=== PATIENT | male | born 1945 | race Caucasian/White ===

== ENCOUNTER 2017-05-13 15:54 | Inpatient (IN) | payer MEDICARE, OTHER ==
[2017-05-13] VITALS (15 sets, daily range): BP systolic 92–129; BP diastolic 63–96
[~2017-05-13] VITALS: Ht 185.4 cm; Wt 141.7 kg
[2017-05-13] MEDS ORDERED: FURO40TA4 PO (16:32)
[2017-05-13] MEDS ORDERED: ALBU18HF2 IH (16:32)
[2017-05-13] MEDS ORDERED: TAMS0.4C2 PO (16:32)
[2017-05-13] MEDS ORDERED: CIPR500T4 PO (16:32)
[2017-05-13] MEDS ORDERED: FOLI1TAB24 PO (17:27)
[2017-05-13] MEDS ORDERED: METH2.5T PO (17:27)
[2017-05-13] MEDS ORDERED: POTA20TA15 PO (17:27)
[2017-05-13] MEDS ORDERED: NS IV 1000 ML 1,000 ML IV PRN (17:40)
[2017-05-13] MEDS: NS IV 1000 ML 1,000 ML IV SCH ×4 (17:45→20:56)
[2017-05-13] MEDS ORDERED: PHARMACY TO DOSE SQ SCH (17:45)
[2017-05-13] MEDS ORDERED: NS IV 1000 ML 4,000 ML IV PRN (17:45)
[2017-05-13] MEDS ORDERED: PIPERACILLIN SODIUM/TAZOBACTAM 4.5 GM in NS (IVPB) 100 ML IV SCH (17:45)
[2017-05-13] MEDS ORDERED: PHARMACY TO DOSE IV SCH (17:45)
[2017-05-13] MEDS ORDERED: PIPERACILLIN/TAZOBACTAM 4.5 GM/NS 100 ML IV NR ×2 (18:00)
[2017-05-13] MEDS ORDERED: RT-ALBUTEROL/IPRATROPIUM 3 ML (DUONEB) VIAL ONE (18:14)
[2017-05-13 18:19] LABS: ABG BASE EXCESS -6.9 MMOL/L (-2.5-2.5); ABG HCO3 18 MMOL/L (23-27); ABG OXYGEN SATURATION 95 % (94-100); ABG PCO2 38 MMHG (35-45); ABG PO2 85 MMHG (79-93)
--- NOTE | 2017-05-13 18:19 | History & Physical-Hospitalist ---
HPI History of Present Illness: HPI/Chief Complaint CC: Sepsis with hypotension likely urinary source HPI: This is a 71-year-old white male whose provider is Dr. Falk in [place] that was sent to [facility] ER due to hypotension. He was assessed to have sepsis likely of urinary source due to recent prostatitis managed on Cipro and Flomax but then he became hypotensive given 2 L of IV fluids at [place] [facility] but were unable to place Gaitan catheter due to the significant edema of the prostate. He was given Zosyn empirically for broad-spectrum antibiotics of likely urinary source but patient has to continue to become hypotensive and likely will require intubation due to wheezing after 2 L of fluid have been given. I have conferred with Dr. Quarles and Dr. Ruvalcaba and they will assist me in consultation but likely will require intubation if fails BiPAP. At this current time patient is tracking slowly but answering questions appropriately although slowed response. He reports that he takes methotrexate 10 tablets once a week for his arthritis. He is unable to tell me if he has any heart or lung problems. 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 Source: patient, RN/MD Exam Limitations: clinical condition Date Seen 05/13/17 Time Seen by Provider: 17:45 Attending Physician Catie Evans Marianne C MD Referring Physician Date of Admission May 13, 2017 at 16:21 Home Medications & Allergies Home Medications Reviewed patient Home Medication Reconciliation Form Allergies Allergies Coded Allergies No Known Drug Allergies (Unverified05/13/17) Past Thggxbw-Gtokxp-Zwspjc Hx Patient Social History Employed/Student: retired Alcohol Use: Regular Use Recreational Drug Use: No Smoking Status: Former Smoker Former Smoker, Quit: Oct 29, 1997 Physical Abuse Screen: No Sexual Abuse: No Recent Foreign Travel: No Contact w/other who traveled: No Recent Hopitalizations: No Recent Infectious Disease Expo: No Seasonal Allergies Seasonal Allergies: No Surgeries Yes Respiratory No Cardiovascular No Neurological No Genitourinary Yes (prostatitis) Benign Prostatic Hyperpl Gastrointestinal No Musculoskeletal Yes Arthritis Endocrine History of Endocrine Disorders: No HEENT History of HEENT Disorders: No Cancer No Psychosocial History of Psychiatric Problem: No Integumentary History of Skin or Integumenta: No Blood Transfusions History of Blood Disorders: No Review of Systems Constitutional: see HPI, chills, diaphoresis, dizziness, fever, malaise, weakness EENTM: no symptoms reported Respiratory: dyspnea on exertion, short of breath, wheezing Cardiovascular: no symptoms reported Gastrointestinal: nausea Genitourinary: decreased output, dysuria, frequency, hematuria, hesitancy, nocturia, pain Musculoskeletal: back pain Skin: no symptoms reported Psychiatric/Neurological: Depressed All Other Systems Reviewed Negative Unless Noted: Yes Physical Exam Physical Exam Vital Signs Vital Sign - Last 12Hours 05/13/17 16:20 O2 Delivery Nasal Cannula O2 Flow Rate 4.00 Capillary Refill : General Appearance: WD/WN, Chronically ill, Moderate Distress (due to wheezing) , Obese, Other (very actuely ill, subtle confusion, slowed tracking) Eyes: Bilateral Eye Normal Inspection, Bilateral Eye PERRL HEENT: PERRL/EOMI, Normal ENT Inspection, Pharynx Normal Neck: Full Range of Motion, Normal Inspection, Non Tender, Supple, Carotid Bruit Respiratory: Chest Non Tender, Crackles, Decreased Breath Sounds, Rales, Respiratory Distress (mild but impending), Wheezing Cardiovascular: No Edema, No Gallop, No JVD, No Murmur, Normal Peripheral Pulses, Tachycardia Gastrointestinal: Normal Bowel Sounds, No Organomegaly, No Pulsatile Mass, Non Tender, Soft Back: Normal Inspection, No CVA Tenderness, No Vertebral Tenderness Extremity: Normal Capillary Refill, Normal Inspection, Normal Range of Motion, Non Tender, No Calf Tenderness, No Pedal Edema Neurologic/Psychiatric: Alert, Oriented x3, No Motor/Sensory Deficits, Normal Mood/Affect Skin: Normal Color, Warm/Dry, Rash (on legs chronic) Lymphatic: No Adenopathy Assessment/Plan Admission Diagnosis Assessment: Sepsis with hypotension status post 2 L of fluid given will need another 2 L due to continued hypotension and likely intubation will be required if fails BiPAP Subtle confusion and slow tracking consistent with sepsis and delirium Acute prostatitis with likely acute UTI and pyelonephritis Severe urinary retention status post urology placement of catheter high risk for gross hematuria and electrolyte imbalance post obstructive diuresis History of arthritis on methotrexate immunosuppression 10 tablets once a week Assessment and Plan Plan: Hold methotrexate immunosuppression Zosyn broad-spectrum I appreciate urology help with placement of catheter that was unable to be placed in [facility] Follow sepsis protocol with fluids Likely intubation if fails BiPAP I appreciate Dr. Ruvalcaba and Dr. Quarles's help and expertise Very difficult situation very critically ill patient poor prognosis long-term Clinical Quality Measures DVT/VTE Risk/Contraindication: Risk Factor Score Per Nursin RFS Level Per Nursing on Admit: 4+=Very High CATIE EVANS DO May 13, 2017 18:19
[2017-05-13 18:20] LABS: ABG PH 7.31 (7.37-7.43)
[2017-05-13 18:21] LABS: ALLENS TEST YES-POS; PATIENT TEMP 101.4
[2017-05-13 18:36] LABS: BASOPHILS % (AUTO) 0 % (0-10); EOSINOPHILS % (AUTO) 0 % (0-10); LYMPHOCYTES # (AUTO) 0.2 X 10^3 (1.0-4.0); LYMPHOCYTES % (AUTO) 10 % (12-44); MEAN CORPUSCULAR HEMOGLOBIN 32 PG (25-34); MEAN CORPUSCULAR HGB CONC 35 G/DL (32-36); MEAN CORPUSCULAR VOLUME 91 FL (80-99); MEAN PLATELET VOLUME 9.6 FL (7.4-10.4); MONOCYTES # (AUTO) 0.1 X 10^3 (0.0-1.0); MONOCYTES % (AUTO) 8 % (0-12); NEUTROPHILS # (AUTO) 1.3 X 10^3 (1.8-7.8); NEUTROPHILS % (AUTO) 82 % (42-75); PLATELET COUNT 60 10^3/uL (130-400); RED BLOOD COUNT 4.54 10^6/uL (4.35-5.85); RED CELL DISTRIBUTION WIDTH 14.8 % (10.0-14.5); WHITE BLOOD COUNT 1.6 10^3/uL (4.3-11.0)
--- NOTE | 2017-05-13 18:36 | Consultation-Cardiology ---
HPI-Cardiology Cardiology Consultation: Date of Consultation 05/13/17 Time Seen by Provider: 18:10 Date of Admission Attending Physician Catie Mendes DO Admitting Physician Sybil Falk MD Consulting Physician СЕРГЕЙ BLACKWELL MD, MA, FACP, FACC, [facility], [facility] Physician requesting consult: Dr Mendes HPI: Chief Complaint: CC: Urinary retention, shortness of breath 71 yo man transferred from [facility] to Dr Mendes's service for treatment of UTI with septicemia. He has had difficult urination for several days and couldn't urinate at all today. Urinary obstruction has now been relieved with a Gaitan cath put in by Dr Chase. He has been diagnosed with UTI. He is running a low bp and is currently receiving treatment for septicemia that includes iv fluids. He notes chronic exertional shortness of breath that has been worse for the last several days. Also has chronic ankle swelling and is chronically on furosemide by mouth. He denies cp or palp or syncope Review of Systems-Cardiology Review of Systems Constitutional: malaise, tiredness, No weight loss, No weight gain Eyes: No vision change Ears/Nose/Throat: No ear discharge, No nasal drainage, No recent hearing loss Respiratory: As described under HPI Cardiovascular: As described under HPI Gastrointestinal: No constipation, No diarrhea, No nausea, No vomiting Genitourinary: As described under HPI Musculoskeletal: back pain (chronic), joint pain (chronic) Skin: No rash, No ulcerations Psychiatric/Neurological: No seizure, No focal weakness, No syncope Hematologic: No bleeding abnormalities All Other Systems Reviewed Negative Unless Noted: Yes YTK-Xdwmrx-Rdatzy Hx Patient Social History Employed/Student: retired Alcohol Use: Regular Use Recreational Drug Use: No Smoking Status: Former Smoker Recent Foreign Travel: No Recent Infectious Disease Expo: No Physical Abuse Screen: No Sexual Abuse: No Past Medical History PMH As described under Assessment. Family Medical History Family Medical History: He does not report fam h/o early CAD or SCD Allergies and Home Medications Allergies Coded Allergies: No Known Drug Allergies (Unverified , 05/13/17) Home Medications Albuterol Sulfate 18 Gm Hfa.aer.ad, 2 PUFF IH Q6H PRN for SHORTNESS OF BREATH, ( Reported) Ciprofloxacin HCl 500 Mg Tablet, 500 MG PO BID, (Reported) FILLED 05/11/17 #28 FOR A 14 DAY THERAPY / HAS NOT STARTED Folic Acid 1 Mg Tablet, 1 MG PO DAILY, (Reported) Furosemide 40 Mg Tablet, 40 MG PO DAILY, (Reported) Methotrexate Sodium 2.5 Mg Tablet, 10 MG PO Meneses, (Reported) TAKES 4 (2.5 MG) TABLETS Potassium Chloride 20 Meq Tab.er.prt, 20 MEQ PO DAILY, (Reported) Tamsulosin HCl 0.4 Mg Cap.er.24h, 0.4 MG PO DAILY, (Reported) Physical Exam-Cardiology Physical Exam Vital Signs/I&O Vital Sign - Last 12Hours 05/13/17 16:20 O2 Delivery Nasal Cannula O2 Flow Rate 4.00 Capillary Refill : Constitutional: AAO x 3, well-developed, well-nourished HEENT: PERRL, EOMI, No xanthelasmas are seen Neck: carotid pulses are 2 + bilaterally, with good upstrokes Respiratory: No accessory muscle use, other (fair air entry; prolonged exp; exp wheezes) Cardiovascular: irregularly irregular, S1 and S2, systolic murmur (faint DIAZ at cardiac base) Gastrointestinal: No tender, soft, No guarding, No rebound, audible bowel sounds Extremities: No clubbing, No cyanosis, significant edema (2+ ankle edema) Neurologic/Psychiatric: grossly intact, power is 5/5 both on sides Skin: No rash on exposed areas, No ulcerations on exposed areas Data Review Labs Laboratory Tests 05/13/17 18:06: Blood Gas Puncture Site LT RAD, Blood Gas Patient Temperature 101.4, Arterial Blood pH 7.31*L, Arterial Blood Partial Pressure CO2 38, Arterial Blood Partial Pressure O2 85, Arterial Blood HCO3 18L, Arterial Blood Total CO2 19.0L, Arterial Blood Oxygen Saturation 95, Arterial Blood Base Excess -6.9L, Satish Test YES-POS, Blood Gas Ventilator Setting NO, Blood Gas Inspired Oxygen 4L Laboratory Tests 05/13/17 18:20 A/P-Cardiology Assessment/Admission Diagnosis UTI with septic shock, being managed by the Med Svce Leukopenia and thrombocytopenia, possibly, due to shock, being managed by the Med Svce Urinary retention, treated with Gaitan cath Probable COPD Atrial fib of unknown age (ventricular rate is currently controlled). Not suitable for anticoag due to significant thrombocytopenia Chronic bilateral ankle swelling likely due to venous insufficiency Discussion and Recomendations * Complex management * Continue treatment for septic shock, including iv fluids * Intubate and place on mech vent, if needed * Monitor labs * I discussed his case with him, his fam, and with Dr Mendes Clinical Quality Measures DVT/VTE Risk/Contraindication: Risk Factor Score Per Nursin RFS Level Per Nursing on Admit: 4+=Very High СЕРГЕЙ BLACKWELL MD FACP [facility] CCDS May 13, 2017 18:35
[2017-05-13] MEDS: NOREPINEPHRINE 4 MG in D5W 250 ML (IVPB) 250 ML IV SCH (18:45)
--- NOTE | 2017-05-13 18:48 | Diagnostic Imaging Report ---
INDICATION: 71-year-old male with shortness of breath, cough and wheezing. COMPARISON: 05/13/17. EXAMINATION: Single view of the chest was obtained. FINDINGS: The cardiac contour appears to be normal. Background chronic parenchymal changes are seen. Minimal basilar atelectatic infiltrates are seen but no significant consolidations are noted. Soft tissues and bony thorax are normal. IMPRESSION: Minimal basilar atelectatic infiltrates but no significant consolidations. There are some background chronic parenchymal changes. Dictated by: Dictated on workstation # [id number]
[2017-05-13 18:55] LABS: ALBUMIN 3.2 GM/DL (3.2-4.5); BILIRUBIN,TOTAL 0.5 MG/DL (0.1-1.0); CALCIUM 7.4 MG/DL (8.5-10.1); CREATININE SERUM 2.63 MG/DL (0.60-1.30); POTASSIUM 4.6 MMOL/L (3.6-5.0); TOTAL PROTEIN 6.3 GM/DL (6.4-8.2)
[2017-05-13] MEDS ORDERED: fentaNYL INJECTION 100 MCG/2 ML AMP IVP NR (19:15)
[2017-05-13] MEDS ORDERED: fentaNYL INJECTION 100 MCG/2 ML AMP IVP PRN (19:30)
--- NOTE | 2017-05-13 19:41 | Progress Note-Post Operative ---
Post-Operative Progess Note Surgeon (s)/Slot Machine Department Floorperson (s) Surgeon KATLYN CLEARY MD Slot Machine Department Floorperson: none Pre-Operative Diagnosis respiratory failure, sepsis Post-Operative Diagnosis same Procedure & Operative Findings Date of Procedure 05/13/17 Procedure Performed/Findings left subclavian central venous catheter placement. Anesthesia Type local Estimated Blood Loss Estimated blood loss (mL): minimal Specimens/Packing Specimens Removed none KATLYN CLEARY MD May 13, 2017 7:41 pm
--- NOTE | 2017-05-13 19:57 | Diagnostic Imaging Report ---
INDICATION: Central line placement. EXAMINATION: Chest, 05/13/2017. COMPARISON: 05/13/2017 at 6:14 p.m. FINDINGS: There has been interval placement of a left-sided subclavian line. The tip crosses midline and is difficult to see. It may lie at the junction of the SVC and brachiocephalic vein. Perhaps followup imaging could better characterize. No pneumothorax is seen. The heart is prominent. The pulmonary vasculature is stable. There is likely atelectasis or mild infiltrate at the lung bases. No significant effusions. IMPRESSION: 1. New subclavian line on the left with the tip somewhat difficult to visualize, see above discussion. 2. Remaining chest is stable. Dictated by: Dictated on workstation # [id number]
[2017-05-13] MEDS ORDERED: ENOXAPARIN 40 MG/0.4 ML (LOVENOX) SYR SC SCH ×2 (20:00→20:15)
[2017-05-13 20:20] LABS: PHOSPHORUS 4.8 MG/DL (2.3-4.7)
--- NOTE | 2017-05-13 20:30 | Pulmonary Consultation ---
History of Present Illness History of Present Illness Date of Consultation 05/13/17 20:24 Time Seen by Provider: 20:24 Date of Admission History of Present Illness 71yo with recent hx of arthritis, prostatitis and treated with cipro, and flomax transported here from [facility] secondary to persistent worsening hypotension. Pt was found to have sepsis with UTI. Pt received 2 liters of IVF at [place]. Pt was started on Zosyn. 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 I am consulted for CC management. He has not had any prior episodes like this. Allergies and Home Medications Allergies Coded Allergies: No Known Drug Allergies (Unverified , 05/13/17) Home Medications Albuterol Sulfate 18 Gm Hfa.aer.ad, 2 PUFF IH Q6H PRN for SHORTNESS OF BREATH, ( Reported) Ciprofloxacin HCl 500 Mg Tablet, 500 MG PO BID, (Reported) FILLED 05/11/17 #28 FOR A 14 DAY THERAPY / HAS NOT STARTED Folic Acid 1 Mg Tablet, 1 MG PO DAILY, (Reported) Furosemide 40 Mg Tablet, 40 MG PO DAILY, (Reported) Methotrexate Sodium 2.5 Mg Tablet, 10 MG PO Meneses, (Reported) TAKES 4 (2.5 MG) TABLETS Potassium Chloride 20 Meq Tab.er.prt, 20 MEQ PO DAILY, (Reported) Tamsulosin HCl 0.4 Mg Cap.er.24h, 0.4 MG PO DAILY, (Reported) Past Qemjmqx-Perfxj-Butmro Hx Patient Social History Alcohol Use: Regular Use Recreational Drug Use: No Smoking Status: Former Smoker Former Smoker, Quit: Oct 29, 1997 Recent Foreign Travel: No Contact w/Someone Who Travel: No Recent Infectious Disease Expo: No Recent Hopitalizations: No Seasonal Allergies Seasonal Allergies: No Surgeries History of Surgeries: Yes Respiratory History of Respiratory Disorde: No Cardiovascular History of Cardiac Disorders: No Neurological History of Neurological Disord: No Genitourinary History of Genitourinary Disor: Yes (prostatitis) Genitourinary Disorders: Benign Prostatic Hyperpl Gastrointestinal History of Gastrointestinal Di: No Musculoskeletal History of Musculoskeletal Dis: Yes Musculoskeletal Disorders: Arthritis Endocrine History of Endocrine Disorders: No HEENT History of HEENT Disorders: No Cancer History of Cancer: No Psychosocial History of Psychiatric Problem: No Integumentary History of Skin or Integumenta: No Blood Transfusions History of Blood Disorders: No Review of Systems Time Seen by Provider: 20:44 Constitutional: Fever, Chills, Sweats, Weakness, Malaise Eyes: No: Pain, Vision change, Conjunctivae inflammation, Eyelid inflammation, Other, Redness ENT: Nose congestion Respiratory: Cough, Dry, Shortness of breath, SOB with excertion, Wheezing, No : Hemoptysis Cardiovascular: Paroxysmal Noc. Dyspnea, Edema (lle), No: Chest Pain, Palpitations, Orthopnea, Lt Headedness, Other Gastrointestinal: No: Nausea, Vomiting, Abdominal Pain, Diarrhea, Constipation , Melena, Hematochezia, Other Genitourinary: No Dysuria, No Frequency, No Incontinence, No Hematuria, No Retention, No Other Exam Exam Vital Signs Date Time Temp Pulse Resp B/P (MAP) Pulse Ox O2 Delivery O2 Flow Rate FiO2 05/13/17 18:45 99 28 121/84 95 High Flow N/C 8.00 05/13/17 18:30 98 32 116/77 96 High Flow N/C 8.00 05/13/17 18:15 105 28 120/65 90 High Flow N/C 8.00 05/13/17 18:00 98 32 119/96 90 Nasal Cannula 5.00 05/13/17 17:45 96 25 127/88 93 Nasal Cannula 5.00 05/13/17 17:30 96 32 96/71 94 Nasal Cannula 5.00 05/13/17 17:15 102 32 106/79 93 Nasal Cannula 5.00 05/13/17 17:00 105 29 100/75 92 Nasal Cannula 5.00 05/13/17 16:45 103 31 105/77 91 Nasal Cannula 5.00 05/13/17 16:30 101 29 92/63 91 Nasal Cannula 5.00 05/13/17 16:20 Nasal Cannula 4.00 I & O 05/14/17 07:00 Intake Total 1000 ml Output Total 1550 ml Balance -550 ml General Appearance: WD/WN, Chronically ill, Moderate Distress (due to wheezing) , Obese, Other (very actuely ill, subtle confusion, slowed tracking) HEENT: PERRL/EOMI, Normal ENT Inspection, Pharynx Normal Neck: Full Range of Motion, Normal Inspection, Non Tender, Supple, Carotid Bruit Respiratory: Chest Non Tender, Crackles, Decreased Breath Sounds, Rales, Respiratory Distress (mild but impending), Wheezing Cardiovascular: No Edema, No Gallop, No JVD, No Murmur, Normal Peripheral Pulses, Tachycardia Extremity: Normal Capillary Refill, Normal Inspection, Normal Range of Motion, Non Tender, No Calf Tenderness, No Pedal Edema Neurologic/Psychiatric: Alert, Oriented x3, No Motor/Sensory Deficits, Normal Mood/Affect Skin: Normal Color, Warm/Dry, Rash (on legs chronic) Lymphatic: No Adenopathy Results Lab Laboratory Tests 05/13/17 18:20 Assessment/Plan Assessment/Plan Severe Sepsis with UTI -Continue Sepsis protocol -Zosyn -IVF Acute respiratory failure with COPDAE -BiPAP PRN -Titrate oxygen PRN -Start Solumedrol 125mg IV x 1 then 40 IV Q 6 -Q4 SVNs. Metabolic lactic acidosis IVF, and monitor Thrombocytopenia -monitor -Check HIT Morbid obesity With probable HERIBERTO Atelectasis -IS , monitor 255 Clinical Quality Measures DVT/VTE Risk/Contraindication: Risk Factor Score Per Nursin RFS Level Per Nursing on Admit: 4+=Very High ROSANA ARGUETA DO May 13, 2017 20:30
[2017-05-13 20:31] LABS: BILIRUBIN,URINE NEGATIVE (NEGATIVE); KETONES,URINE NEGATIVE (NEGATIVE); LEUKOCYTE ESTERASE ,URINE 2+ (NEGATIVE); NITRITE,URINE NEGATIVE (NEGATIVE); PH,URINE 5 (5-9); PROTEIN,URINE 2+ (NEGATIVE); UROBILINOGEN,URINE NORMAL (NORMAL)
[2017-05-13] MEDS ORDERED: CALCIUM GLUC. 10% 4.65 MEQ/10 ML VIAL ONE (20:39)
[2017-05-13] MEDS ORDERED: CALCIUM GLUCONATE 10% INJ 4.65 MEQ in NS (IVPB) 50 ML IV ONE (20:45)
[2017-05-13] MEDS ORDERED: methylPREDNISolone 125 MG (Solu-MEDROL) VIAL IVP ONE (20:45)
[2017-05-13] MEDS ORDERED: NS (IVPB) 50 ML ONE (20:45)
[2017-05-13] MEDS ORDERED: methylPREDNISolone 40 MG/ML (Solu-MEDROL) VIAL IV SCH (20:45)
[2017-05-13] MEDS: MONTELUKAST 10 MG (SINGULAIR) TAB PO SCH (20:57)
[2017-05-13] MEDS: FAMOTIDINE 20MG/2ML IV (PEPCID) IV SCH (21:03)
[2017-05-13] MEDS: RT-ALBUTEROL/IPRATROPIUM 3 ML (DUONEB) VIAL INH SCH (21:20)
--- NOTE | 2017-05-13 23:13 | CONSULTATION REPORT ---
DATE OF SERVICE: ADMITTING PHYSICIAN: Dr. Mendes. ATTENDING PRIMARY CARE PHYSICIAN: Dr. Falk in [place], [place]. HISTORY OF PRESENT ILLNESS: The patient is a 71-year-old male who developed shortness of breath. He was seen at [place] and diagnosed with urosepsis and was found to be hypotensive as well. He was given 2 liters of IV fluids; however, the catheter was unable to be placed due to prostatic enlargement. He does have what appears to be a history of COPD as well as previous history of exacerbation of COPD. He has significant audible wheezing. Upon admission to [facility], he was found to be hypotensive with unlabored breathing and does meet the criteria for sepsis protocol. He has poor peripheral venous circulation and will potentially require mechanical ventilation as well as IV pressors and will require central venous catheter. PAST MEDICAL HISTORY: COPD, degenerative joint disease, knees, ankles and back; benign prostatic hypertrophy. PAST SURGICAL HISTORY: None. ALLERGIES: No known drug allergies. MEDICATIONS: Albuterol 2 puffs q.6h. p.r.n., folic acid 1 mg daily, furosemide 40 mg daily, methotrexate 2.5 mg weekly, potassium 10 mEq daily, tamsulosin 0.4 mg daily, ciprofloxacin 500 mg b.i.d. SOCIAL HISTORY: Previous smoker, quit in the 90s, greater than 40 pack years. Negative alcohol. VITAL SIGNS: Blood pressure 121/84, pulse 79, respirations 28 on 8 liters high-flow nasal cannula. REVIEW OF SYSTEMS: This is a well-nourished male, currently guarded secondary to respiratory insufficiency. He is experiencing labored breathing, wheezing, as well as [id number]-[id number] productive cough. No hemoptysis. No chest pain, palpitations, or diaphoresis. He does report joint pain in his back as well as his left ankle. No nausea, vomiting. No diarrhea, constipation. No red blood per rectum. No dark tarry stools. No known fever or chills. No recent inadvertent weight loss. All other review of systems negative. PHYSICAL EXAMINATION: CHEST: Scattered wheezes and rhonchi bilaterally. HEART: Mild tachycardia and regular. No murmurs. EXTREMITIES: +1/2 bilateral lower extremity edema. Negative Homans sign. HEENT: No scleral icterus. NECK: No cervical lymphadenopathy. ABDOMEN: Soft, nontender, nondistended. SKIN: Warm and dry. ASSESSMENT AND PLAN: A 71-year-old male with exacerbation of COPD and then respiratory failure, and also does meet the criteria for sepsis requiring the sepsis protocol. He has poor peripheral venous circulation and is impending off intubation and mechanical ventilation as well as vasopressor support for blood pressure. We will proceed with placement of a central venous catheter. Job ID: [id number] DocumentID: [id number] Dictated Date: 05/13/2017 19:47:22 Signal Circuit Designer Date: 05/13/2017 23:13:06 Dictated By: KATLYN CLEARY MD
[2017-05-14] VITALS (24 sets, daily range): BP systolic 96–151; BP diastolic 64–99
[2017-05-14] MEDS: PIPERACILLIN/TAZOBACTAM 4.5 GM/NS 100 ML IVPB IV SCH ×8 (00:14→23:36)
[2017-05-14] MEDS: inSUlin (REGULAR) HUMAN 1 UNIT/0.01 ML (CHARGE PER UNIT) SC SCH ×5 (00:14→20:35)
[2017-05-14] MEDS: NOREPINEPHRINE 4 MG in D5W 250 ML (IVPB) 250 ML IV SCH ×4 (00:23→20:26)
[2017-05-14] MEDS: NS IV 1000 ML 1,000 ML IV SCH ×4 (01:08→22:20)
[2017-05-14] MEDS: RT-ALBUTEROL/IPRATROPIUM 3 ML (DUONEB) VIAL INH SCH ×5 (02:42→23:11)
--- NOTE | 2017-05-14 03:22 | Pulmonary Progress Note ---
Subjective Time Seen by Provider: 03:31 Subjective/Events-last exam Pt is confused ripping out IVs and hospital gown. Exam Exam Vital Signs Date Time Temp Pulse Resp B/P (MAP) Pulse Ox O2 Delivery O2 Flow Rate FiO2 05/14/17 01:00 98 05/14/17 00:00 High Flow N/C 7.00 05/13/17 21:20 93 High Flow N/C 7.00 05/13/17 21:15 High Flow N/C 7.00 05/13/17 20:30 High Flow N/C 10.00 05/13/17 20:00 High Flow N/C 15.00 05/13/17 20:00 99.4 High Flow N/C 15.00 05/13/17 19:00 101 05/13/17 18:45 99 28 121/84 95 High Flow N/C 8.00 05/13/17 18:30 98 32 116/77 96 High Flow N/C 8.00 05/13/17 18:15 105 28 120/65 90 High Flow N/C 8.00 05/13/17 18:00 98 32 119/96 90 Nasal Cannula 5.00 05/13/17 17:45 96 25 127/88 93 Nasal Cannula 5.00 05/13/17 17:30 96 32 96/71 94 Nasal Cannula 5.00 05/13/17 17:15 102 32 106/79 93 Nasal Cannula 5.00 05/13/17 17:00 105 29 100/75 92 Nasal Cannula 5.00 05/13/17 16:45 103 31 105/77 91 Nasal Cannula 5.00 05/13/17 16:30 101 29 92/63 91 Nasal Cannula 5.00 05/13/17 16:20 Nasal Cannula 4.00 General Appearance: WD/WN, Chronically ill, Moderate Distress (due to wheezing) , Obese, Other (very actuely ill, subtle confusion, slowed tracking) HEENT: PERRL/EOMI, Normal ENT Inspection, Pharynx Normal Neck: Full Range of Motion, Normal Inspection, Non Tender, Supple, Carotid Bruit Respiratory: Chest Non Tender, Crackles, Decreased Breath Sounds, Rales, Respiratory Distress (mild but impending), Wheezing Cardiovascular: No Edema, No Gallop, No JVD, No Murmur, Normal Peripheral Pulses, Tachycardia Extremity: Normal Capillary Refill, Normal Inspection, Normal Range of Motion, Non Tender, No Calf Tenderness, No Pedal Edema Neurologic/Psychiatric: Alert, No Motor/Sensory Deficits, Normal Mood/Affect, Depressed Affect, Other (confused) Skin: Normal Color, Warm/Dry, Rash (on legs chronic) Lymphatic: No Adenopathy Results Lab Laboratory Tests 05/13/17 18:20 Assessment/Plan Assessment/Plan Severe Sepsis with UTI with iatrogenic immunodeficiency -Continue Sepsis protocol -Zosyn add vanco -paz cultures pending -IVF -Hold methotrexate Acute respiratory failure with COPDAE -BiPAP PRN -Titrate oxygen PRN - Solumedrol 40 IV Q 6 -Q4 SVNs. Metabolic lactic acidosis -Improving Thrombocytopenia -monitor -Check HIT Atelectasis -IS , monitor Morbid obesity With probable HERIBERTO -Out patient testing Labs and CXR are pending 233 Clinical Quality Measures DVT/VTE Risk/Contraindication: Risk Factor Score Per Nursin RFS Level Per Nursing on Admit: 4+=Very High ROSANA ARGUETA DO May 14, 2017 03:22
[2017-05-14] MEDS ORDERED: PHARMACY TO DOSE IV SCH (03:30)
[2017-05-14] MEDS ORDERED: VANCOMYCIN 2000 MG/NS 500 ML IVPB IV ONE ×2 (03:45)
[2017-05-14] MEDS ORDERED: VANCOMYCIN 1000 MG/VIAL ONE (04:21)
[2017-05-14] MEDS ORDERED: NS IV 500 ML 500 ML ONE (04:21)
[2017-05-14] MEDS: methylPREDNISolone 40 MG/ML (Solu-MEDROL) VIAL IV SCH ×4 (04:23→20:26)
[2017-05-14 04:35] LABS: BASOPHILS % (AUTO) 0 % (0-10); EOSINOPHILS % (AUTO) 0 % (0-10); LYMPHOCYTES # (AUTO) 0.1 X 10^3 (1.0-4.0); LYMPHOCYTES % (AUTO) 14 % (12-44); MEAN CORPUSCULAR HEMOGLOBIN 32 PG (25-34); MEAN CORPUSCULAR HGB CONC 35 G/DL (32-36); MEAN CORPUSCULAR VOLUME 92 FL (80-99); MEAN PLATELET VOLUME 9.7 FL (7.4-10.4); MONOCYTES % (AUTO) 2 % (0-12); NEUTROPHILS # (AUTO) 0.7 X 10^3 (1.8-7.8); NEUTROPHILS % (AUTO) 84 % (42-75); PLATELET COUNT 55 10^3/uL (130-400); RED BLOOD COUNT 4.22 10^6/uL (4.35-5.85)
[2017-05-14 04:39] LABS: WHITE BLOOD COUNT 0.9 10^3/uL (4.3-11.0)
[2017-05-14 04:42] LABS: PROTHROMBIN TIME PATIENT 13.2 SEC (12.2-14.7)
[2017-05-14 04:51] LABS: BILIRUBIN,TOTAL 0.4 MG/DL (0.1-1.0); CALCIUM 7.1 MG/DL (8.5-10.1); CREATININE SERUM 1.98 MG/DL (0.60-1.30); PHOSPHORUS 4.1 MG/DL (2.3-4.7); POTASSIUM 4.7 MMOL/L (3.6-5.0); TOTAL PROTEIN 5.8 GM/DL (6.4-8.2)
[2017-05-14] MEDS ORDERED: NS IV 1000 ML 1,000 ML IV SCH (05:00)
--- NOTE | 2017-05-14 07:52 | Diagnostic Imaging Report ---
INDICATION: Dyspnea. PA chest obtained at 3:15 a.m. and comparison made to yesterday. FINDINGS: The heart is mildly enlarged. There is minimal central vascular prominence. There is no consolidation or pneumothorax or pleural fluid. Central venous catheter is unchanged. IMPRESSION: Mild cardiomegaly. No focal infiltrate or pneumothorax or pleural fluid. Unchanged central venous catheter. Dictated by: Dictated on workstation # [id number]
[2017-05-14] MEDS ORDERED: NON-FORMULARY MEDICATION 1 EA EA (Tamsulosin HCl 0.4 MG) PO SCH (09:00)
--- NOTE | 2017-05-14 09:01 | Progress Note-Cardiology ---
Cardiology SOAP Progress Note Subjective: Has shortness of breath as before. Denies cp or palp or syncope Objective: I&O/Vital Signs Vital Sign - Last 12Hours 05/13/17 05/13/17 05/13/17 05/13/17 21:00 21:15 21:20 22:00 Pulse 112 112 Resp 28 24 B/P (MAP) 108/81 120/85 Pulse Ox 95 93 93 O2 Delivery High Flow N/C High Flow N/C High Flow N/C High Flow N/C O2 Flow Rate 10.00 7.00 7.00 7.00 05/13/17 05/14/17 05/14/17 05/14/17 23:00 00:00 00:00 00:00 Temp 98.4 Pulse 109 101 Resp 26 23 B/P (MAP) 129/90 126/88 Pulse Ox 93 93 O2 Delivery High Flow N/C High Flow N/C High Flow N/C O2 Flow Rate 7.00 7.00 7.00 05/14/17 05/14/17 05/14/17 05/14/17 01:00 01:00 02:00 03:00 Pulse 98 99 97 104 Resp 25 16 27 B/P (MAP) 136/87 115/91 139/98 Pulse Ox 94 94 95 O2 Delivery High Flow N/C High Flow N/C High Flow N/C O2 Flow Rate 7.00 7.00 7.00 05/14/17 05/14/17 05/14/17 05/14/17 04:00 04:00 05:00 05:22 Temp 99.0 Pulse 99 90 Resp 21 B/P (MAP) 119/80 119/80 Pulse Ox 93 96 O2 Delivery High Flow N/C High Flow N/C High Flow N/C O2 Flow Rate 7.00 7.00 7.00 05/14/17 05/14/17 05/14/17 05/14/17 06:00 07:00 07:00 08:00 Pulse 90 90 59 93 Resp 39 22 B/P (MAP) 129/91 120/77 116/64 Pulse Ox 96 95 94 O2 Delivery High Flow N/C High Flow N/C High Flow N/C O2 Flow Rate 7.00 7.00 7.00 Weight (Pounds): 287 Weight (Ounces): 8.0 Weight (Calculated Kilograms): [phone] Constitutional: AAO x 3, well-developed, well-nourished Respiratory: No accessory muscle use, other (fair air entry; prolonged exp; exp wheezes) Cardiovascular: irregularly irregular, S1 and S2, systolic murmur (faint DIAZ at cardiac base) Gastrointestional: No tender, soft, No guarding, No rebound, audible bowel sounds Extremities: No clubbing, No cyanosis, significant edema (2+ ankle edema) Neurologic/Psychiatric: grossly intact, power is 5/5 both on sides Skin: No rash on exposed areas, No ulcerations on exposed areas Results/Procedures: Labs Laboratory Tests 05/13/17 18:06: Blood Gas Puncture Site LT RAD, Blood Gas Patient Temperature 101.4, Arterial Blood pH 7.31*L, Arterial Blood Partial Pressure CO2 38, Arterial Blood Partial Pressure O2 85, Arterial Blood HCO3 18L, Arterial Blood Total CO2 19.0L, Arterial Blood Oxygen Saturation 95, Arterial Blood Base Excess -6.9L, Satish Test YES-POS, Blood Gas Ventilator Setting NO, Blood Gas Inspired Oxygen 4L 05/13/17 18:20: White Blood Count 1.6L, Red Blood Count 4.54, Hemoglobin 14.5, Hematocrit 42, Mean Corpuscular Volume 91, Mean Corpuscular Hemoglobin 32, Mean Corpuscular Hemoglobin Concent 35, Red Cell Distribution Width 14.8H, Platelet Count 60L, Mean Platelet Volume 9.6, Neutrophils (%) (Auto) 82H, Lymphocytes (%) (Auto) 10L , Monocytes (%) (Auto) 8, Eosinophils (%) (Auto) 0, Basophils (%) (Auto) 0, Neutrophils # (Auto) 1.3L, Lymphocytes # (Auto) 0.2L, Monocytes # (Auto) 0.1, Eosinophils # (Auto) 0.0, Basophils # (Auto) 0.0, Prothrombin Time 13.0, INR Comment 1.0, Activated Partial Thromboplast Time 34, Sodium Level 133L, Potassium Level 4.6, Chloride Level 102, Carbon Dioxide Level 19L, Anion Gap 12 , Blood Urea Nitrogen 63H, Creatinine 2.63H, Estimat Glomerular Filtration Rate 24, BUN/Creatinine Ratio 24, Glucose Level 184H, Lactic Acid Level 2.25*H, Calcium Level 7.4L, Phosphorus Level 4.8H, Magnesium Level 2.0, Total Bilirubin 0.5, Aspartate Amino Transf (AST/SGOT) 555H, Alanine Aminotransferase (ALT/SGPT ) 183H, Alkaline Phosphatase 53, B-Type Natriuretic Peptide 13.7, Total Protein 6.3L, Albumin 3.2 05/13/17 19:50: Lactic Acid Level 2.10*H 05/13/17 20:20: Urine Color YELLOW, Urine Clarity CLEAR, Urine pH 5, Urine Specific Pinnacle 1.015L, Urine Protein 2+H, Urine Glucose (UA) NEGATIVE, Urine Ketones NEGATIVE, Urine Nitrite NEGATIVE, Urine Bilirubin NEGATIVE, Urine Urobilinogen NORMAL, Urine Leukocyte Esterase 2+H, Urine RBC (Auto) 5+H, Urine RBC 5-10H, Urine WBC 5 -10H, Urine Crystals NONE, Urine Bacteria TRACE, Urine Casts NONE, Urine Mucus NEGATIVE, Urine Culture Indicated YES 05/13/17 21:55: Lactic Acid Level 1.60 05/14/17 00:03: Glucometer 184H 05/14/17 00:05: Lactic Acid Level 1.59 05/14/17 04:25: Lactic Acid Level 2.22*H, White Blood Count 0.9*L, Red Blood Count 4.22L, Hemoglobin 13.5, Hematocrit 39L, Mean Corpuscular Volume 92, Mean Corpuscular Hemoglobin 32, Mean Corpuscular Hemoglobin Concent 35, Red Cell Distribution Width 15.0H, Platelet Count 55L, Mean Platelet Volume 9.7, Neutrophils (%) (Auto ) 84H, Lymphocytes (%) (Auto) 14, Monocytes (%) (Auto) 2, Eosinophils (%) (Auto ) 0, Basophils (%) (Auto) 0, Neutrophils # (Auto) 0.7L, Lymphocytes # (Auto) 0.1L, Monocytes # (Auto) 0.0, Eosinophils # (Auto) 0.0, Basophils # (Auto) 0.0, Prothrombin Time 13.2, INR Comment 1.0, Activated Partial Thromboplast Time 38H , Sodium Level 136, Potassium Level 4.7, Chloride Level 109H, Carbon Dioxide Level 17L, Anion Gap 10, Blood Urea Nitrogen 53H, Creatinine 1.98H, Estimat Glomerular Filtration Rate 34, BUN/Creatinine Ratio 27, Glucose Level 259H, Calcium Level 7.1L, Phosphorus Level 4.1, Total Bilirubin 0.4, Aspartate Amino Transf (AST/SGOT) 505H, Alanine Aminotransferase (ALT/SGPT) 166H, Alkaline Phosphatase 49, Total Protein 5.8L, Albumin 3.0L 05/14/17 08:29: Laboratory Tests 05/13/17 18:20 05/14/17 04:25 A/P: Assessment: UTI with septic shock, being managed by the Med Svce Leukopenia and thrombocytopenia, possibly, due to shock, being managed by the Med Svce Urinary retention, treated with Gaitan cath Probable COPD Atrial fib vs baseline artifact at presentation. Currently NSR. Not suitable for anticoag due to significant thrombocytopenia Chronic bilateral ankle swelling likely due to venous insufficiency Plan: * Complex management * Continue treatment for septic shock, including iv fluids * Intubate and place on mech vent, if needed * Monitor labs * I discussed his case with him, his fam, and with Dr Mendes * Echo today СЕРГЕЙ BLACKWELL MD FACP FAC CCDS May 14, 2017 09:01
--- NOTE | 2017-05-14 09:20 | Diagnostic Imaging Report ---
EXAMINATION: Bilateral lower extremity duplex venous ultrasound. TECHNIQUE: DVT protocol. Multiple sonographic images with color Doppler and waveform interrogation were performed of the lower extremity veins, bilaterally, with compression and augmentation maneuvers. INDICATION: Bilateral leg edema. FINDINGS: The lower extremity veins from the common femoral veins to below the knee veins were examined with normal color-flow, compressibility and normal waveform demonstrated. The great saphenous vein bilaterally is patent. IMPRESSION: No evidence of DVT in either lower extremity. Dictated by: Dictated on workstation # [id number]
[2017-05-14] MEDS: LORATADINE (CLARITIN) 10 MG TAB PO SCH (09:24)
[2017-05-14] MEDS: FAMOTIDINE 20MG/2ML IV (PEPCID) IV SCH ×2 (09:24→20:26)
--- NOTE | 2017-05-14 10:17 | Progress Note-Urology ---
Progress Note-Urology Progress Notes/Assess & Plan Progress/Assessment & Plan LOW GRADE TEMP. VSS. FEELING AND LOOKING BETTER. URINE CLEAR. GOOD OUTPUT. ABNORMAL LABS. WE WILL ORDER ABDOMINAL US TO CHECK ON KIDNEYS AND LIVER. Final Diagnosis URINE RETENTION, BNC, SEPSIS, RENAL INSUFFICIENCY, ABNORMAL LIVER ENZYMES DIANA WEBER MD May 14, 2017 10:16
--- NOTE | 2017-05-14 12:00 | Diagnostic Imaging Report ---
PROCEDURE: US abdomen complete. TECHNIQUE: Multiple real-time grayscale images were obtained over the abdomen in various projections. INDICATION: Abnormal liver enzymes. Renal insufficiency. FINDINGS: The pancreas is obscured by bowel gas. The liver is echogenic which could relate to fatty infiltration or hepatitis. The gallbladder demonstrates no stones or wall thickening. The CBD is obscured. The spleen is mildly enlarged measuring 14.4 x 4.7 x 6.4 cm. The right kidney is 12.6 and the left kidney is 11.6 cm in length with no hydronephrosis or focal lesion. The abdominal aorta and the IVC are obscured by bowel. No fluid collection or ascites is identified. Sonographic Abdalla's sign is reportedly negative. IMPRESSION: Increased liver echogenicity may relate to fatty infiltration or hepatitis. Dictated by: Dictated on workstation # [id number]
--- NOTE | 2017-05-14 12:04 | Progress Note-Hospitalist ---
Progress Note HPI/CC on Admission CC: Sepsis with hypotension likely urinary source HPI: This is a 71-year-old white male whose provider is Dr. Falk in [place] that was sent to [facility] ER due to hypotension. He was assessed to have sepsis likely of urinary source due to recent prostatitis managed on Cipro and Flomax but then he became hypotensive given 2 L of IV fluids at [place] but were unable to place Gaitan catheter due to the significant edema of the prostate. He was given Zosyn empirically for broad-spectrum antibiotics of likely urinary source but patient has to continue to become hypotensive and likely will require intubation due to wheezing after 2 L of fluid have been given. I have conferred with Dr. Quarles and Dr. Ruvalcaba and they will assist me in consultation but likely will require intubation if fails BiPAP. At this current time patient is tracking slowly but answering questions appropriately although slowed response. He reports that he takes methotrexate 10 tablets once a week for his arthritis. He is unable to tell me if he has any heart or lung problems. 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 Progress Notes/Assess & Plan Date Seen 05/14/17 Time Seen by Provider: 10:15 Admission Dx/Process Assessment: Sepsis with hypotension status post 2 L of fluid given will need another 2 L due to continued hypotension and likely intubation will be required if fails BiPAP Subtle confusion and slow tracking consistent with sepsis and delirium Acute prostatitis with likely acute UTI and pyelonephritis Severe urinary retention status post urology placement of catheter high risk for gross hematuria and electrolyte imbalance post obstructive diuresis History of arthritis on methotrexate immunosuppression 10 tablets once a week Diagonsis/Assessment & Plan Chart Review: WBC down 0.9 Platelet count 55k Lactic acid 2.78 Creat improved from 2.63 to 1.98 Venous Doppler no DVT CXR mild cardiomegaly Echocardiogram pending Patient Interview: Pt states that he is feeling better and is breathing better. Pt's son was visiting upon interview. Pt states that his son is an RN in [place]. Son was curious about the pt's condition. Pt's sepsis and bladder retention discussed with the son. Pt denies experiencing pain O2 and BP were discussed and look better Physical exam stable. Lungs sound perfect Pt was informed that we hope to move him from the ICU tomorrow. Pt will move to 4th floor, but he will stay in the ICU today Pt requested breakfast and we will work on this. No fever, vital signs stable, improved, still slow response but improved, chronically ill RRR Upper respiratory wheezing noted but minimal tachypnea Obese nontender No edema Assessment: Sepsis with hypotension status post 4 L of fluid given per protocol improved on biPAP last night Subtle confusion and slow tracking consistent with sepsis and delirium now improved Acute prostatitis with likely acute UTI and pyelonephritis Severe urinary retention status post urology placement of catheter high risk for gross hematuria and electrolyte imbalance post obstructive diuresis History of arthritis on methotrexate immunosuppression 10 tablets once a week Elevated LFT's with USG revealing GALVEZ ARF creat 1.98 improved Neutropenia Thrombocytopenia likely due to MTX Plan: Hold methotrexate immunosuppression Zosyn broad-spectrum I appreciate urology help with placement of catheter that was unable to be placed in [facility] Follow sepsis protocol with fluids Likely intubation if fails BiPAP I appreciate Dr. Ruvalcaba and Dr. Quarles's help and expertise Very difficult situation very critically ill patient poor prognosis long-term Neutropenia is closely monitored along with platelets Scribed by Yuni Celestin under the direct supervision of Dr. Evans. YENNY EVANS DO May 14, 2017 12:04
--- NOTE | 2017-05-14 14:40 | CONSULTATION REPORT ---
DATE OF SERVICE: 05/13/2017 ATTENDING PHYSICIAN: Dr. Mendes. SUMMARY: A 71 Y/O white man was transferred from emergency room in [place] where he was admitted with urosepsis and urinary retention. They were unable to insert the catheter. They were also lacking the ICU presence. Needed to transfer the patient. They contacted Dr. Mendes, our hospitalist, who accepted the transfer and the patient was transferred here through the ICU. According to the patient he previously had seen Dr. Damon many many years ago and apparently had what sounded like a stricture and had a suprapubic tube put in and then he underwent a procedure he described as a ?? TURP in [place]. Did well until recently has started having some issues urinating. Phallus is uncircumcised with adequate meatus. Testes are down in the scrotum, atrophic. Rectal exam deferred. Abdomen is pretty obese IMPRESSION: Urosepsis with urinary retention, inability to insert the catheter, possible stricture or bladder neck contracture. PLAN: I went ahead and under sterile condition I inserted and 18-[place] coude catheter. I felt resistance at the bladder neck, however, was able to go the width of the bladder with no problem, no bleeding. Inflated the balloon to 10 mL with no issues and drained about 1600 mL of clear yuliana urine. RECOMMENDATION: 1. Full spectrum antibiotic which I am sure will be done because of the urosepsis. 2. Watch for any gross hematuria which should have happened already but just in case and watch him for postobstructive diuresis, monitor his electrolytes, mostly his potassium and replace half of the fluid along with fluid hydration for the urosepsis. We will see the patient in the morning. Job ID: [id number] DocumentID: [id number] Dictated Date: 05/13/2017 17:17:42 Family Service Caseworker Date: 05/13/2017 21:12:09 Dictated By: DIANA WEBER MD [facility]
[2017-05-14] MEDS: ALFUZOSIN HCL 10 MG TAB (UROXATRAL) PO SCH (18:11)
[2017-05-14] MEDS: MONTELUKAST 10 MG (SINGULAIR) TAB PO SCH (20:26)
[2017-05-15] VITALS (26 sets, daily range): BP systolic 97–158; BP diastolic 58–101
[2017-05-15 00:02] LABS: ABG BASE EXCESS -8.2 MMOL/L (-2.5-2.5); ABG HCO3 18 MMOL/L (23-27); ABG OXYGEN SATURATION 96 % (94-100); ABG PCO2 42 MMHG (35-45); ABG PO2 87 MMHG (79-93); ABG TCO2 18.8 MMOL/L (21.0-31.0)
[2017-05-15 00:03] LABS: ABG PH 7.25 (7.37-7.43); ALLENS TEST YES-POS
[2017-05-15 00:04] LABS: PATIENT TEMP 100.2
[2017-05-15] MEDS ORDERED: SODIUM BICARB 8.4% 50 MEQ/50 ML (ABBOTT) SYR IV ONE ×3 (00:15→16:20)
[2017-05-15] MEDS: RT-ALBUTEROL/IPRATROPIUM 3 ML (DUONEB) VIAL INH SCH ×6 (01:58→22:12)
[2017-05-15] MEDS: methylPREDNISolone 40 MG/ML (Solu-MEDROL) VIAL IV SCH ×4 (03:44→21:38)
[2017-05-15] MEDS: NOREPINEPHRINE 4 MG in D5W 250 ML (IVPB) 250 ML IV SCH ×4 (03:44→23:00)
[2017-05-15 04:50] LABS: BASOPHILS % (AUTO) 1 % (0-10); EOSINOPHILS % (AUTO) 0 % (0-10); LYMPHOCYTES # (AUTO) 0.2 X 10^3 (1.0-4.0); LYMPHOCYTES % (AUTO) 20 % (12-44); MEAN CORPUSCULAR HEMOGLOBIN 32 PG (25-34); MEAN CORPUSCULAR HGB CONC 34 G/DL (32-36); MEAN CORPUSCULAR VOLUME 94 FL (80-99); MEAN PLATELET VOLUME 9.7 FL (7.4-10.4); MONOCYTES # (AUTO) 0.1 X 10^3 (0.0-1.0); MONOCYTES % (AUTO) 7 % (0-12); NEUTROPHILS # (AUTO) 0.7 X 10^3 (1.8-7.8); NEUTROPHILS % (AUTO) 72 % (42-75); PLATELET COUNT 53 10^3/uL (130-400); RED BLOOD COUNT 3.84 10^6/uL (4.35-5.85); RED CELL DISTRIBUTION WIDTH 15.1 % (10.0-14.5)
[2017-05-15 05:03] LABS: INR 0.9 (0.8-1.4); PROTHROMBIN TIME PATIENT 12.4 SEC (12.2-14.7)
[2017-05-15 05:11] LABS: ALBUMIN 2.7 GM/DL (3.2-4.5); BILIRUBIN,TOTAL 0.3 MG/DL (0.1-1.0); CALCIUM 7.4 MG/DL (8.5-10.1); CREATININE SERUM 1.26 MG/DL (0.60-1.30); MAGNESIUM 2.2 MG/DL (1.8-2.4); PHOSPHORUS 2.3 MG/DL (2.3-4.7); POTASSIUM 4.3 MMOL/L (3.6-5.0); TOTAL PROTEIN 5.2 GM/DL (6.4-8.2)
[2017-05-15] MEDS: POTASSIUM CL 10MEQ/50ML IVPB 50 ML IV SCH (05:14)
[2017-05-15] MEDS: KCL 20 MEQ TAB (K-DUR) PO SCH (05:15)
[2017-05-15] MEDS: MAGNESIUM 1 GM/100 ML IVPB 100 ML IV SCH (05:15)
[2017-05-15] MEDS: inSUlin (REGULAR) HUMAN 1 UNIT/0.01 ML (CHARGE PER UNIT) SC SCH ×4 (05:37→21:00)
--- NOTE | 2017-05-15 07:09 | Progress Note-Urology ---
Progress Note-Urology Progress Notes/Assess & Plan Progress/Assessment & Plan LOW GRADE TEMP. STILL LEUCOPENIA. US NO PATHOLOGY. UC NG. DECISION TO DC BRIGHT IS PER MEDICAL SERVICE. Final Diagnosis URINE RETENTION, BNC, UROSEPSIS DIANA WEBER MD May 15, 2017 07:09
--- NOTE | 2017-05-15 07:13 | OPERATIVE REPORT ---
DATE OF SERVICE: 05/13/2017 DATE OF PROCEDURE: 05/13/2017. ADMITTING PHYSICIAN: Dr. Mendes. ATTENDING PRIMARY CARE PHYSICIAN: Dr. Falk. PREPROCEDURE DIAGNOSES: Exacerbation of chronic obstructive pulmonary disease, respiratory failure, sepsis. POSTPROCEDURE DIAGNOSES: Exacerbation of chronic obstructive pulmonary disease, respiratory failure, sepsis. PROCEDURE: Placement of left subclavian central venous catheter. SURGEON: Dr. De LaT orre. ANESTHESIA: Local. ESTIMATED BLOOD LOSS: Minimal. FINDINGS: Catheter tip at superior vena caval - right atrial junction. DISPOSITION: The patient tolerated the procedure well. INDICATIONS: The patient is a 71-year-old male is from [place], [place], who initially was admitted to [facility] in [place]. His working diagnosis at that time was exacerbation of COPD as well as urosepsis, started on antibiotics. He had worsening shortness of breath as well as hypotension despite fluid challenge and was transferred to [facility] ICU. He reports that he has had wheezing and respiratory insufficiency consistent with COPD. He also reports that he has had a worsening cough, which was productive; however, no hemoptysis. His breathing is labored and he may require intubation and mechanical ventilation as well as vasopressor support to maintain blood pressure. DESCRIPTION OF PROCEDURE: The left chest and neck were prepped and draped in standard surgical fashion. The left subclavian region was then anesthetized using 1% lidocaine. The left subclavian vein was then cannulated with drawing the venous blood. The guidewire was then inserted without any resistance. The cannulating needle removed and a small skin incision was made using an 11 blade. A tract was then created using a venous dilator and a triple lumen central venous catheter was placed over the guidewire using the Seldinger technique. The guidewire was removed. All 3 ports milton venous blood and saline pushed in without any resistance. Catheter was then sutured to the skin using 3-0 silk interrupted sutures. Catheter was then cleaned and covered with sterile gauze followed by Op-Site. The patient tolerated the procedure well. The post-procedure chest x-ray showed a proper placement of the catheter with the tip at the superior vena caval - right atrial junction and no pneumothorax. The catheter may be used at any time. Job ID: [id number] DocumentID: [id number] Dictated Date: 05/13/2017 19:50:43 Optoelectronics Engineer Date: 05/14/2017 06:18:02 Dictated By: KATLYN DE LA TORRE MD
--- NOTE | 2017-05-15 07:33 | Diagnostic Imaging Report ---
Portable upright radiograph of the chest. INDICATION: Respiratory failure, shortness of breath. COMPARISON: 05/14/2017. FINDINGS: There are mild bibasilar subsegmental opacities favored to be atelectasis, slightly increased compared to 05/14/2017. The heart size is at the upper limits of normal. There is question of a tiny left effusion. No pneumothorax. The mediastinum and giuliano appear unremarkable. IMPRESSION: Minimally bibasilar opacities likely related to atelectasis. Dictated by: Dictated on workstation # [id number]
--- NOTE | 2017-05-15 08:29 | Pulmonary Progress Note ---
Subjective Time Seen by Provider: 08:45 Subjective/Events-last exam Pt is refusing BiPAP. Exam Exam Vital Signs Date Time Temp Pulse Resp B/P (MAP) Pulse Ox O2 Delivery O2 Flow Rate FiO2 05/15/17 06:59 93 Vapotherm 20.00 50 05/15/17 06:00 122 49 108/75 91 Vapotherm 50.00 20.00 05/15/17 05:00 106 26 149/75 95 Vapotherm 50.00 20.00 05/15/17 04:00 106 135/80 95 Vapotherm 50.00 20.00 05/15/17 04:00 Vapotherm 20.00 50 05/15/17 03:00 104 113/82 94 Vapotherm 50.00 20.00 05/15/17 02:00 108 24 145/80 94 Vapotherm 50.00 20.00 05/15/17 01:58 93 Vapotherm 20.00 50 05/15/17 01:00 110 24 158/99 93 Vapotherm 50.00 20.00 05/15/17 01:00 110 05/15/17 00:45 114 29 92 Vapotherm 50.00 20.00 05/15/17 00:04 Vapotherm 20.00 50 05/15/17 00:00 High Flow N/C 6.00 05/15/17 00:00 100.1 113 50 135/101 93 High Flow N/C 7.00 05/14/17 23:11 96 High Flow N/C 7.00 05/14/17 23:00 125 23 119/92 95 High Flow N/C 7.00 05/14/17 22:00 116 37 107/90 97 High Flow N/C 7.00 05/14/17 21:00 98 32 96/70 90 High Flow N/C 7.00 05/14/17 20:00 100.2 89 133/74 96 High Flow N/C 7.00 05/14/17 20:00 High Flow N/C 6.00 05/14/17 19:31 High Flow N/C 6.00 05/14/17 19:31 97 High Flow N/C 7.00 05/14/17 19:00 91 123/77 96 High Flow N/C 7.00 05/14/17 19:00 90 05/14/17 18:00 84 133/88 95 High Flow N/C 7.00 05/14/17 17:00 87 18 128/66 92 High Flow N/C 7.00 05/14/17 16:00 81 31 134/87 94 High Flow N/C 7.00 05/14/17 16:00 High Flow N/C 7.00 05/14/17 16:00 98.8 05/14/17 15:51 94 High Flow N/C 6.00 05/14/17 15:00 101 26 133/85 High Flow N/C 7.00 05/14/17 14:00 97 151/83 94 High Flow N/C 7.00 05/14/17 13:00 103 05/14/17 13:00 122 24 122/78 95 High Flow N/C 7.00 05/14/17 12:15 High Flow N/C 7.00 05/14/17 12:15 97.8 05/14/17 12:00 94 24 132/81 94 High Flow N/C 7.00 05/14/17 11:00 96 25 124/82 97 High Flow N/C 7.00 05/14/17 10:58 95 High Flow N/C 6.00 05/14/17 10:00 96 22 103/79 95 High Flow N/C 7.00 05/14/17 09:00 95 22 140/99 94 High Flow N/C 7.00 General Appearance: WD/WN, Chronically ill, Moderate Distress (due to wheezing) , Obese, Other (very actuely ill, subtle confusion, slowed tracking) HEENT: PERRL/EOMI, Normal ENT Inspection, Pharynx Normal Neck: Full Range of Motion, Normal Inspection, Non Tender, Supple, Carotid Bruit Respiratory: Chest Non Tender, Accessory Muscle Use, Crackles, Decreased Breath Sounds, Rales, Respiratory Distress (mild but impending), Wheezing Cardiovascular: No Edema, No Gallop, No JVD, No Murmur, Normal Peripheral Pulses, Tachycardia Extremity: Normal Capillary Refill, Normal Inspection, Normal Range of Motion, Non Tender, No Calf Tenderness, No Pedal Edema Neurologic/Psychiatric: Alert, Oriented x3, No Motor/Sensory Deficits, Normal Mood/Affect Skin: Normal Color, Warm/Dry, Rash (on legs chronic) Lymphatic: No Adenopathy Results Lab Laboratory Tests 05/13/17 18:20 05/14/17 04:25 05/15/17 04:45 Assessment/Plan Assessment/Plan Severe Sepsis with UTI with iatrogenic immunodeficiency -Continue Sepsis protocol -- repeat paz cultures -Zosyn vanco add diflucan -paz cultures pending -IVF -Hold methotrexate Acute respiratory failure with COPDAE -BiPAP PRN -Titrate oxygen PRN - Solumedrol 40 IV Q 6 -Q4 SVNs. Leukopenia -present on admission -start granix Metabolic lactic acidosis -Will give 2 amps of Na HC03 Thrombocytopenia -monitor -Check HIT Atelectasis -IS , monitor Morbid obesity With probable HERIBERTO -Out patient testing Labs and CXR are pending 233 Clinical Quality Measures DVT/VTE Risk/Contraindication: Risk Factor Score Per Nursin RFS Level Per Nursing on Admit: 4+=Very High ROSANA ARGUETA DO May 15, 2017 08:29
[2017-05-15] MEDS ORDERED: FLUCONAZOLE 200 MG/100 ML 100 ML IV NR (08:50)
[2017-05-15] MEDS: PIPERACILLIN/TAZOBACTAM 4.5 GM/NS 100 ML IVPB IV SCH ×4 (08:58→15:22)
[2017-05-15] MEDS: LACTATED RINGERS 1,000 ML IV SCH ×2 (08:58→17:25)
[2017-05-15] MEDS: LORATADINE (CLARITIN) 10 MG TAB PO SCH (08:59)
[2017-05-15] MEDS: FAMOTIDINE 20MG/2ML IV (PEPCID) IV SCH ×2 (08:59→21:33)
[2017-05-15] MEDS: VANCOMYCIN 1500 MG/NS 500 ML IVPB IV SCH ×2 (10:00)
[2017-05-15] MEDS: TBO-FILGRASTIM 480 MCG/0.8 ML (GRANIX) SQ SCH (10:00)
[2017-05-15] MEDS: LEVOFLOXACIN 750 MG/150 ML IV 150 ML IV SCH (10:01)
--- NOTE | 2017-05-15 10:56 | Progress Note-Cardiology ---
Cardiology SOAP Progress Note Subjective: Lethargic. No c/o CP. Dyspnea with conversation. No c/o palpitations. Family x1 at the bedside. Objective: I&O/Vital Signs Vital Sign - Last 12Hours 05/15/17 05/15/17 05/15/17 05/15/17 06:59 07:00 07:00 08:00 Pulse 110 109 Resp 26 Pulse Ox 93 95 O2 Delivery Vapotherm Vapotherm Vapotherm O2 Flow Rate 20.00 50.00 20.00 20.00 FiO2 50 50 05/15/17 05/15/17 05/15/17 05/15/17 08:00 09:00 10:00 10:35 Temp 98.1 Pulse 111 110 109 Resp 25 B/P (MAP) 124/73 101/72 119/73 Pulse Ox 97 97 O2 Delivery Vapotherm Vapotherm Vapotherm Vapotherm O2 Flow Rate 50.00 50.00 50.00 20.00 20.00 20.00 20.00 FiO2 50 05/15/17 05/15/17 05/15/17 05/15/17 11:00 12:00 12:00 13:00 Temp 98.2 Pulse 110 111 B/P (MAP) 116/74 O2 Delivery Vapotherm Vapotherm Vapotherm O2 Flow Rate 50.00 50.00 20.00 20.00 20.00 FiO2 50 05/15/17 05/15/17 05/15/17 05/15/17 13:00 14:00 15:00 15:49 Pulse 111 117 114 Resp 26 27 28 B/P (MAP) 103/73 115/68 106/74 Pulse Ox 95 94 92 93 O2 Delivery Vapotherm Vapotherm Vapotherm Vapotherm O2 Flow Rate 50.00 50.00 50.00 20.00 20.00 20.00 20.00 FiO2 50 05/15/17 05/15/17 05/15/17 05/15/17 16:00 16:00 16:05 17:00 Temp 100.1 Pulse 101 118 Resp 29 27 B/P (MAP) 124/70 131/73 Pulse Ox 94 93 O2 Delivery Vapotherm Vapotherm Vapotherm Vapotherm O2 Flow Rate 50.00 20.00 50.00 50.00 20.00 20.00 20.00 FiO2 50 05/15/17 05/15/17 17:00 18:00 Pulse 120 121 Resp 27 21 B/P (MAP) 142/77 114/70 Pulse Ox 93 93 O2 Delivery Vapotherm Vapotherm O2 Flow Rate 50.00 50.00 20.00 20.00 Intake and Output 05/16/17 00:00 Intake Total 600 ml Output Total 350 ml Balance 250 ml Weight (Pounds): 303 Weight (Ounces): 1.0 Weight (Calculated Kilograms): 137.339904 Constitutional: AAO x 3, well-developed, well-nourished Respiratory: No accessory muscle use, other (fair air entry; prolonged exp; exp wheezes) Cardiovascular: tachycardia, S1 and S2, systolic murmur (faint DIAZ at cardiac base) Gastrointestional: No tender, soft, No guarding, No rebound, audible bowel sounds Extremities: No clubbing, No cyanosis, significant edema (2+ ankle edema) Neurologic/Psychiatric: grossly intact, power is 5/5 both on sides Skin: No rash on exposed areas, No ulcerations on exposed areas Results/Procedures: Labs Laboratory Tests 05/14/17 18:54: Lactic Acid Level 3.32*H 05/14/17 20:31: Glucometer 263H 05/14/17 23:50: Blood Gas Puncture Site RT RAD, Blood Gas Patient Temperature 100.2, Arterial Blood pH 7.25*L, Arterial Blood Partial Pressure CO2 42, Arterial Blood Partial Pressure O2 87, Arterial Blood HCO3 18L, Arterial Blood Total CO2 18.8L, Arterial Blood Oxygen Saturation 96, Arterial Blood Base Excess -8.2L, Satish Test YES-POS, Blood Gas Ventilator Setting NO, Blood Gas Inspired Oxygen 6 05/15/17 04:45: Lactic Acid Level 2.67*H, White Blood Count 1.0*L, Red Blood Count 3.84L, Hemoglobin 12.3L, Hematocrit 36L, Mean Corpuscular Volume 94, Mean Corpuscular Hemoglobin 32, Mean Corpuscular Hemoglobin Concent 34, Red Cell Distribution Width 15.1H, Platelet Count 53L, Mean Platelet Volume 9.7, Neutrophils (%) (Auto ) 72, Lymphocytes (%) (Auto) 20, Monocytes (%) (Auto) 7, Eosinophils (%) (Auto) 0, Basophils (%) (Auto) 1, Neutrophils # (Auto) 0.7L, Lymphocytes # (Auto) 0.2L , Monocytes # (Auto) 0.1, Eosinophils # (Auto) 0.0, Basophils # (Auto) 0.0, Prothrombin Time 12.4, INR Comment 0.9, Activated Partial Thromboplast Time 32, Sodium Level 139, Potassium Level 4.3, Chloride Level 112H, Carbon Dioxide Level 19L, Anion Gap 8, Blood Urea Nitrogen 35H, Creatinine 1.26, Estimat Glomerular Filtration Rate 57, BUN/Creatinine Ratio 28, Glucose Level 277H, Calcium Level 7.4L, Phosphorus Level 2.3, Magnesium Level 2.2, Total Bilirubin 0.3, Aspartate Amino Transf (AST/SGOT) 412H, Alanine Aminotransferase (ALT/SGPT ) 145H, Alkaline Phosphatase 50, Total Protein 5.2L, Albumin 2.7L 05/15/17 09:15: Lactic Acid Level 2.85*H 05/15/17 12:15: Lactic Acid Level 3.84*H 05/15/17 12:34: Glucometer 225H 05/15/17 15:30: Lactic Acid Level 3.64*H 05/15/17 15:47: Blood Gas Puncture Site LEFT RADIAL, Blood Gas Patient Temperature 100.1, Arterial Blood pH 7.29*L, Arterial Blood Partial Pressure CO2 47H, Arterial Blood Partial Pressure O2 53L, Arterial Blood HCO3 22L, Arterial Blood Total CO2 23.4, Arterial Blood Oxygen Saturation 84L, Arterial Blood Base Excess -3.3L , Satish Test POSITIVE, Blood Gas Ventilator Setting NO, Blood Gas Inspired Oxygen 50% 05/15/17 16:04: Glucometer 223H 05/15/17 17:55: Lactic Acid Level 5.00*H Microbiology 05/13/17 Blood Culture - Preliminary, Resulted No growth 05/14/17 Gram Stain - Final, Resulted 05/14/17 Sputum Culture - Preliminary, Resulted Usual/normal christiano isolated. 05/13/17 Urine Culture - Final, Complete NO GROWTH Procedures NAME: ARAM MORENO Brandee [facility] REC#: [id number] PT STATUS: ADM IN : 1945 PHYSICIAN: DIANA WEBER MD ADMIT DATE: 05/13/17/ICU Signed Date of Exam: 05/14/17 US ABDOMEN COMPLETE [id number] PROCEDURE: US abdomen complete. TECHNIQUE: Multiple real-time grayscale images were obtained over the abdomen in various projections. INDICATION: Abnormal liver enzymes. Renal insufficiency. FINDINGS: The pancreas is obscured by bowel gas. The liver is echogenic which could relate to fatty infiltration or hepatitis. The gallbladder demonstrates no stones or wall thickening. The CBD is obscured. The spleen is mildly enlarged measuring 14.4 x 4.7 x 6.4 cm. The right kidney is 12.6 and the left kidney is 11.6 cm in length with no hydronephrosis or focal lesion. The abdominal aorta and the IVC are obscured by bowel. No fluid collection or ascites is identified. Sonographic Abdalla's sign is reportedly negative. IMPRESSION: Increased liver echogenicity may relate to fatty infiltration or hepatitis. Dictated by: Dictated on workstation # [id number] Dict: 05/14/17 1155 Trans: 05/14/17 1223 Interpreted by: DEIDRA FRAGA MD Electronically signed by: DEIDRA FRAGA MD 05/14/17 1223 NAME: ARAM MORENO [facility] REC#: [id number] PT STATUS: ADM IN : 1945 PHYSICIAN: FRENCH PLAZA MD ADMIT DATE: 05/13/17/ICU Signed Date of Exam: 05/15/17 CHEST 1 VIEW, AP/PA ONLY Portable upright radiograph of the chest. INDICATION: Respiratory failure, shortness of breath. COMPARISON: 05/14/2017. FINDINGS: There are mild bibasilar subsegmental opacities favored to be atelectasis, slightly increased compared to 05/14/2017. The heart size is at the upper limits of normal. There is question of a tiny left effusion. No pneumothorax. The mediastinum and giuliano appear unremarkable. IMPRESSION: Minimally bibasilar opacities likely related to atelectasis. Dictated by: Dictated on workstation # [id number] Dict: 05/15/17 0721 Trans: 05/15/17 0747 Interpreted by: DEIDRA FRAGA MD Electronically signed by: DEIDRA FRAGA MD 05/15/17 9950 A/P: Assessment: UTI with septic shock, being managed by the Med Svce Leukopenia and thrombocytopenia, possibly due to shock, being managed by the Med Svce Urinary retention, treated with Gaitan cath Probable COPD Atrial fib vs baseline artifact at presentation. Currently NSR. Not suitable for anticoag due to significant thrombocytopenia Chronic bilateral ankle swelling likely due to venous insufficiency Metabolic acidosis - management per Dr. Quarles Thrombocytopenia and leukopenia of undetermined etiology - management per medical services Liver enzyme elevation of undetermined etiology - possible hepatitis - management per medical services Plan: * Complex management * Continue treatment for septic shock, including iv fluids - management per Dr. Quarles * Monitor labs * Echo today * Refusing Bi-pap tx * Thrombocytopenia and leukopenia of undetermined etiology - medical services managing - consider consult with hematology services * Liver enzyme elevation of undetermined etiology - medical services managing Physician Assessment Physician Assessment Continuing shortness of breath Lungs: fair air entry, scattered rhonchi Cor: reg Ext: mild edema A&R * As documented in our note above that I updated (italics) and as noted below * Complex management due to multiple comorbidities * Monitor labs DEBORAH MARTIN [employer]PECTING OBSERVER May 15, 2017 10:56 СЕРГЕЙ BLACKWELL MD FACP FAC CCDS May 15, 2017 18:48
--- NOTE | 2017-05-15 11:47 | Progress Note-Hospitalist ---
Progress Note HPI/CC on Admission CC: Sepsis with hypotension likely urinary source HPI: This is a 71-year-old white male whose provider is Dr. Falk in [place] that was sent to [facility] ER due to hypotension. He was assessed to have sepsis likely of urinary source due to recent prostatitis managed on Cipro and Flomax but then he became hypotensive given 2 L of IV fluids at [facility] but were unable to place Gaitan catheter due to the significant edema of the prostate. He was given Zosyn empirically for broad-spectrum antibiotics of likely urinary source but patient has to continue to become hypotensive and likely will require intubation due to wheezing after 2 L of fluid have been given. I have conferred with Dr. Quarles and Dr. Ruvalcaba and they will assist me in consultation but likely will require intubation if fails BiPAP. At this current time patient is tracking slowly but answering questions appropriately although slowed response. He reports that he takes methotrexate 10 tablets once a week for his arthritis. He is unable to tell me if he has any heart or lung problems. 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 Progress Notes/Assess & Plan Date Seen 05/15/17 Time Seen by Provider: 10:00 Admission Dx/Process Assessment: Sepsis with hypotension status post 2 L of fluid given will need another 2 L due to continued hypotension and likely intubation will be required if fails BiPAP Subtle confusion and slow tracking consistent with sepsis and delirium Acute prostatitis with likely acute UTI and pyelonephritis Severe urinary retention status post urology placement of catheter high risk for gross hematuria and electrolyte imbalance post obstructive diuresis History of arthritis on methotrexate immunosuppression 10 tablets once a week Diagonsis/Assessment & Plan Chart Review: WBC 1.[address] Quarles Review: Pt started on Granix and 2 amps of Bicarb Pt may end up on the vent Dr. Quarles believes that the pt's family may not agree to plans, but I informed him that the pt's son is an RN and seems very reasonable. Pharmacy Review: Abx coverage broadened to antifungal Patient Interview: Pt seems very drowsy upon interview Pt states he is feeling a bit better and denies experiencing pain Physical exam stable. No fever, vital signs stable, improved, still slow response but improved, chronically ill RRR Upper respiratory wheezing noted but minimal tachypnea Obese nontender No edema Assessment: Sepsis with hypotension status post 4 L of fluid given per protocol improved on biPAP Subtle confusion and slow tracking consistent with sepsis and delirium now improved but baseline may be very flat and not different then current status Acute prostatitis with likely acute UTI and pyelonephritis Severe urinary retention status post urology placement of catheter high risk for gross hematuria and electrolyte imbalance post obstructive diuresis History of arthritis on methotrexate immunosuppression 10 tablets once a week Elevated LFT's with USG revealing GALVEZ ARF creat 1.2 improved Neutropenia Thrombocytopenia likely due to MTX receiving Granix today Plan: Hold methotrexate immunosuppression Abx w/antifungal I appreciate urology help with placement of catheter that was unable to be placed in [facility] Follow sepsis protocol with fluids Likely intubation if fails BiPAP I appreciate Dr. Ruvalcaba and Dr. Quarles's help and expertise Very difficult situation very critically ill patient poor prognosis long-term Neutropenia is closely monitored along with platelets Scribed by Yuni Celestin under the direct supervision of Dr. Evans. YENNY EVANS DO May 15, 2017 11:47
[2017-05-15] MEDS ORDERED: NS IV 1000 ML 1,000 ML IV SCH ×2 (14:15→19:00)
[2017-05-15 15:53] LABS: ABG BASE EXCESS -3.3 MMOL/L (-2.5-2.5); ABG HCO3 22 MMOL/L (23-27); ABG OXYGEN SATURATION 84 % (94-100); ABG PCO2 47 MMHG (35-45); ABG PO2 53 MMHG (79-93); ABG TCO2 23.4 MMOL/L (21.0-31.0)
[2017-05-15 15:55] LABS: ABG PH 7.29 (7.37-7.43); ALLENS TEST POSITIVE; PATIENT TEMP 100.1
[2017-05-15] MEDS ORDERED: SODIUM BICARB 8.4% 50 MEQ/50 ML (ABBOTT) SYR ONE (16:08)
[2017-05-15] MEDS: ALFUZOSIN HCL 10 MG TAB (UROXATRAL) PO SCH (17:25)
[2017-05-15] MEDS ORDERED: HALOPERIDOL 5 MG/ML (HALDOL) AMP ONE (18:09)
[2017-05-15] MEDS ORDERED: HALOPERIDOL 5 MG/ML (HALDOL) AMP IV ONE (18:30)
[2017-05-15] MEDS ORDERED: HALOPERIDOL 5 MG/ML (HALDOL) AMP IV PRN (18:30)
[2017-05-15] MEDS ORDERED: morphine INJ 4 MG/ML 1 ML (VIAL/SYRINGE) IVP PRN (18:30)
[2017-05-15] MEDS: DEXMEDETOMIDINE INJECTION 400 MCG in NS (IVPB) 100 ML IV SCH (18:35)
--- NOTE | 2017-05-15 18:41 | Pulmonary Progress Note ---
Standard Progress Note Progress Notes Time Seen by Provider: 18:41 Assessment & Plan Severe Sepsis with UTI with iatrogenic immunodeficiency -Continue Sepsis protocol -- repeat paz cultures -Zosyn vanco add diflucan -paz cultures pending -IVF -Hold methotrexate Acute respiratory failure with COPDAE -BiPAP PRN -Titrate oxygen PRN - Solumedrol 40 IV Q 6 -Q4 SVNs. Leukopenia -present on admission -start granix Metabolic lactic acidosis -Will give 2 amps of Na HC03 Thrombocytopenia -monitor -Check HIT Atelectasis -IS , monitor Morbid obesity With probable HERIBERTO -Out patient testing Labs and CXR are pending ABG is more acidotic and patient has no reserve. He has not been able to tolerate BiPAP however after discussing options ventilator vs BiPAP he is willing to trial Bipap again if we give him something to relax him. I am going to start BiPAP 15/8 and start precedex gtt, Haldol PRN. Currently pat is a full code and he wants to remain a full code at this point. I have discussed patient current condition and plan of care with family at bedside. 45 min spent with patient, RN, and family. ROSANA ARGUETA DO May 15, 2017 18:40
[2017-05-15] MEDS ORDERED: NS (IVPB) 50 ML ONE (18:51)
[2017-05-15] MEDS ORDERED: NS IV 500 ML 500 ML ONE (19:37)
--- NOTE | 2017-05-15 20:13 | Diagnostic Imaging Report ---
INDICATION: ET tube placement. COMPARISON: 05/15/17 at 12:08 p.m. EXAMINATION: Single view of the chest was obtained. FINDINGS: ET tube is in the midtrachea. NG tube is in the stomach. There is cardiac enlargement with slightly worsening central vascular congestion. Atelectasis in the bases has resolved. IMPRESSION: 1. Well-positioned support lines without pneumothorax. 2. Cardiac enlargement with new and/or increasing central vascular congestion. Dictated by: Dictated on workstation # [id number]
[2017-05-15] MEDS: PROPOFOL DRIP (ICU) 100 ML IV SCH (20:45)
--- NOTE | 2017-05-15 20:55 | Anesthesia-Procedure Note ---
Procedure Start/Stop Time Date of Procedure: May 15, 2017 Start Time: 19:23 Referring Physician: Robina Brief History Sepsis/ Acute Respiratory Failure Stop Time: 20:10 Procedures/Interventions RSI: Yes 100% pre-Ox, [id number]: Yes Intubation Method: orotracheal Videoscope used: Yes (Glidescope 3) Grade View: 1 Medications: Propofol (200mg), Succinylcholine (100mg) Mask Ventilation: positive Positive End Tide CO2: Yes Breath Sounds after Intubation: bilateral-equal ETT Securred @ (cm): 25 Intubated with ease: No (1st attempt with Grade 2 view, unable to pass enough anteriorly. Repositioned with pillow under shoulder, with Grade 1 view and easy placement of ETT.) Post Intubation Xray-done: Yes Post Procedure Called to intubate. Upon arrival, patient agitated/combative. Staff struggling to keep patient on any supplemental oxygen. Proceeded with intubation after report received from RN. Attempts x 2 with Glidescope, with no complications or desaturation past 88-89%. Procedures Radial arterial line placement attempted bilaterally. Easily accessed with good return of blood, but unable to advance guidewire or get catheter to thread. INGRID MCADAMS CRNA May 15, 2017 20:55
[2017-05-15] MEDS: MONTELUKAST 10 MG (SINGULAIR) TAB PO SCH (21:00)
[2017-05-15 22:10] LABS: ABG BASE EXCESS -2.7 MMOL/L (-2.5-2.5); ABG HCO3 24 MMOL/L (23-27); ABG OXYGEN SATURATION 100 % (94-100); ABG PCO2 61 MMHG (35-45); ABG PO2 226 MMHG (79-93); ABG TCO2 25.6 MMOL/L (21.0-31.0)
[2017-05-15 22:11] LABS: ABG PH 7.22 (7.37-7.43)
[2017-05-15 22:12] LABS: ALLENS TEST YES-POS; PATIENT TEMP 100.1
[2017-05-16] VITALS (33 sets, daily range): BP systolic 93–139; BP diastolic 54–81
[2017-05-16] MEDS: PIPERACILLIN/TAZOBACTAM 4.5 GM/NS 100 ML IVPB IV SCH ×6 (00:15→16:58)
[2017-05-16] MEDS: LACTATED RINGERS 1,000 ML IV SCH ×2 (00:15→13:58)
[2017-05-16] MEDS: inSUlin (REGULAR) HUMAN 1 UNIT/0.01 ML (CHARGE PER UNIT) SC SCH ×6 (00:21→18:25)
[2017-05-16] MEDS: RT-ALBUTEROL/IPRATROPIUM 3 ML (DUONEB) VIAL INH SCH ×6 (02:07→22:59)
[2017-05-16] MEDS: PROPOFOL DRIP (ICU) 100 ML IV SCH ×5 (02:18→23:26)
[2017-05-16] MEDS: methylPREDNISolone 40 MG/ML (Solu-MEDROL) VIAL IV SCH ×4 (03:01→21:34)
[2017-05-16 03:50] LABS: ABG BASE EXCESS -3.9 MMOL/L (-2.5-2.5); ABG HCO3 22 MMOL/L (23-27); ABG OXYGEN SATURATION 96 % (94-100); ABG PCO2 52 MMHG (35-45); ABG PO2 81 MMHG (79-93); ABG TCO2 23.7 MMOL/L (21.0-31.0); BASOPHILS # (AUTO) 0.4 10^3/uL (0.0-0.1); BASOPHILS % (AUTO) 5 % (0-10); EOSINOPHILS % (AUTO) 0 % (0-10); LYMPHOCYTES # (AUTO) 1.2 X 10^3 (1.0-4.0); LYMPHOCYTES % (AUTO) 15 % (12-44); MEAN CORPUSCULAR HEMOGLOBIN 31 PG (25-34); MEAN CORPUSCULAR HGB CONC 33 G/DL (32-36); MEAN CORPUSCULAR VOLUME 96 FL (80-99); MONOCYTES # (AUTO) 0.3 X 10^3 (0.0-1.0); MONOCYTES % (AUTO) 3 % (0-12); NEUTROPHILS # (AUTO) 6.6 X 10^3 (1.8-7.8); NEUTROPHILS % (AUTO) 78 % (42-75); PLATELET COUNT 49 10^3/uL (130-400); RED BLOOD COUNT 3.76 10^6/uL (4.35-5.85); RED CELL DISTRIBUTION WIDTH 15.7 % (10.0-14.5); WHITE BLOOD COUNT 8.4 10^3/uL (4.3-11.0)
[2017-05-16 03:51] LABS: ABG PH 7.25 (7.37-7.43)
[2017-05-16 03:52] LABS: ALLENS TEST YES-POS; PATIENT TEMP 99.1
[2017-05-16 03:59] LABS: PROTHROMBIN TIME PATIENT 13.2 SEC (12.2-14.7)
[2017-05-16 04:08] LABS: MAGNESIUM 2.1 MG/DL (1.8-2.4); PHOSPHORUS 3.2 MG/DL (2.3-4.7)
[2017-05-16 04:09] LABS: ALBUMIN 2.4 GM/DL (3.2-4.5); BILIRUBIN,TOTAL 0.4 MG/DL (0.1-1.0); CALCIUM 7.1 MG/DL (8.5-10.1); CREATININE SERUM 1.72 MG/DL (0.60-1.30); PHOSPHORUS 3.1 MG/DL (2.3-4.7); TOTAL PROTEIN 4.7 GM/DL (6.4-8.2)
[2017-05-16 04:22] LABS: BAND NEUTROPHILS 18 %; LYMPHOCYTES % (MANUAL) 4 %; NEUTROPHILS % (MANUAL) 75 %; POIKILOCYTOSIS SLIGHT
[2017-05-16] MEDS: NOREPINEPHRINE 4 MG in D5W 250 ML (IVPB) 250 ML IV SCH ×3 (05:40→19:00)
[2017-05-16] MEDS: MAGNESIUM 1 GM/100 ML IVPB 100 ML IV SCH (06:00)
[2017-05-16] MEDS: KCL 20 MEQ TAB (K-DUR) PO SCH (06:00)
[2017-05-16] MEDS: POTASSIUM CL 10MEQ/50ML IVPB 50 ML IV SCH (06:00)
[2017-05-16] MEDS ORDERED: TROUGH ORDER-PHARMACY XX ONE (07:00)
--- NOTE | 2017-05-16 07:40 | Diagnostic Imaging Report ---
CHEST 1 VIEW, AP/PA ONLY Indication: Sepsis and intubation Comparison: 05/15/2017 Findings: Support Devices: Stable ET and enteric tubes. Stable left subclavian central venous catheter. Chest: Right basilar reticular nodular opacities are unchanged. No pleural effusion or pneumothorax. Stable cardiomegaly. Atherosclerotic aorta is similar. Impression: 1. Stable support devices. 2. No adverse development. Dictated by: Dictated on workstation # [id number]
[2017-05-16] MEDS: FLUCONAZOLE 100 MG/50 ML 50 ML IV SCH (08:13)
[2017-05-16] MEDS: LORATADINE (CLARITIN) 10 MG TAB PO SCH (08:13)
[2017-05-16] MEDS: LEVOFLOXACIN 750 MG/150 ML IV 150 ML IV SCH (08:13)
[2017-05-16] MEDS: FAMOTIDINE 20MG/2ML IV (PEPCID) IV SCH ×2 (08:13→21:34)
[2017-05-16] MEDS: DEXMEDETOMIDINE INJECTION 400 MCG in NS (IVPB) 100 ML IV SCH (09:40)
[2017-05-16] MEDS: VANCOMYCIN 1500 MG/NS 500 ML IVPB IV SCH ×4 (09:45→20:41)
[2017-05-16] MEDS: TBO-FILGRASTIM 480 MCG/0.8 ML (GRANIX) SQ SCH (09:46)
--- NOTE | 2017-05-16 14:26 | Progress Note-Cardiology ---
Cardiology SOAP Progress Note Subjective: Intubated, sedated, and on mech vent. Not able to provide any history Objective: I&O/Vital Signs Vital Sign - Last 12Hours 05/16/17 05/16/17 05/16/17 05/16/17 04:00 04:00 04:23 05:00 Temp 99.1 Pulse 105 112 95 Resp 25 33 25 B/P (MAP) 113/68 100/63 Pulse Ox 100 97 99 O2 Delivery Mechanical Ventilator Mechanical Ventilator Mechanical Ventilator O2 Flow Rate 50.00 50.00 FiO2 50 50 05/16/17 05/16/17 05/16/17 05/16/17 06:00 06:30 07:00 07:00 Pulse 99 94 97 134 Resp 26 25 23 B/P (MAP) 94/59 98/64 Pulse Ox 100 95 O2 Delivery Mechanical Ventilator Mechanical Ventilator O2 Flow Rate 50.00 40.00 FiO2 50 05/16/17 05/16/17 05/16/17 05/16/17 08:00 08:10 08:42 08:55 Temp 99.5 Pulse 121 118 Resp 28 27 B/P (MAP) 100/60 98/64 Pulse Ox 95 98 O2 Delivery Mechanical Ventilator Mechanical Ventilator O2 Flow Rate 50.00 FiO2 50 50 05/16/17 05/16/17 05/16/17 05/16/17 09:00 10:00 10:13 11:00 Pulse 117 114 113 112 Resp 34 24 24 18 B/P (MAP) 93/74 104/64 98/59 Pulse Ox 98 98 98 98 O2 Delivery Mechanical Ventilator O2 Flow Rate 50.00 50.00 50.00 FiO2 50 05/16/17 05/16/17 05/16/17 05/16/17 12:00 12:00 12:30 12:32 Temp 99.2 Pulse 111 110 Resp 15 26 B/P (MAP) 104/74 Pulse Ox 98 98 O2 Delivery Mechanical Ventilator Mechanical Ventilator O2 Flow Rate 50.00 FiO2 50 50 05/16/17 05/16/17 05/16/17 13:00 13:58 14:13 Pulse 109 109 Resp 24 B/P (MAP) 108/63 Pulse Ox 98 FiO2 50 Intake and Output 05/17/17 00:00 Intake Total 1915 ml Output Total 30 ml Balance 1885 ml Weight (Pounds): 308 Weight (Ounces): 1.0 Weight (Calculated Kilograms): 139.639942 Constitutional: well-developed, well-nourished, other (on [facility] vent) Respiratory: No accessory muscle use, other (fair air entry; prolonged exp; exp wheezes) Cardiovascular: tachycardia, S1 and S2, systolic murmur (faint DIAZ at cardiac base) Gastrointestional: No tender, soft, No guarding, No rebound, audible bowel sounds Extremities: No clubbing, No cyanosis, significant edema (2+ ankle edema) Neurologic/Psychiatric: grossly intact, power is 5/5 both on sides Skin: No rash on exposed areas, No ulcerations on exposed areas Results/Procedures: Labs Laboratory Tests 05/15/17 15:47: Blood Gas Puncture Site LEFT RADIAL, Blood Gas Patient Temperature 100.1, Arterial Blood pH 7.29*L, Arterial Blood Partial Pressure CO2 47H, Arterial Blood Partial Pressure O2 53L, Arterial Blood HCO3 22L, Arterial Blood Total CO2 23.4, Arterial Blood Oxygen Saturation 84L, Arterial Blood Base Excess -3.3L , Satish Test POSITIVE, Blood Gas Ventilator Setting NO, Blood Gas Inspired Oxygen 50% 05/15/17 16:04: Glucometer 223H 05/15/17 17:55: Lactic Acid Level 5.00*H 05/15/17 22:05: Blood Gas Puncture Site RT RADIAL, Blood Gas Patient Temperature 100.1, Arterial Blood pH 7.22*L, Arterial Blood Partial Pressure CO2 61H, Arterial Blood Partial Pressure O2 226H, Arterial Blood HCO3 24, Arterial Blood Total CO2 25.6, Arterial Blood Oxygen Saturation 100, Arterial Blood Base Excess -2.7L , Satish Test YES-POS, Blood Gas Ventilator Setting YES, Blood Gas Inspired Oxygen 100% 05/16/17 00:06: Glucometer 196H 05/16/17 03:30: White Blood Count 8.4, Red Blood Count 3.76L, Hemoglobin 11.8L, Hematocrit 36L, Mean Corpuscular Volume 96, Mean Corpuscular Hemoglobin 31, Mean Corpuscular Hemoglobin Concent 33, Red Cell Distribution Width 15.7H, Platelet Count 49L, Mean Platelet Volume 11.0H, Neutrophils (%) (Auto) 78H, Lymphocytes (%) (Auto) 15, Monocytes (%) (Auto) 3, Eosinophils (%) (Auto) 0, Basophils (%) (Auto) 5, Neutrophils # (Auto) 6.6, Lymphocytes # (Auto) 1.2, Monocytes # (Auto) 0.3, Eosinophils # (Auto) 0.0, Basophils # (Auto) 0.4H, Neutrophils % (Manual) 75, Lymphocytes % (Manual) 4, Monocytes % (Manual) 3, Band Neutrophils 18, Toxic Granulation 1+, Poikilocytosis SLIGHT, Prothrombin Time 13.2, INR Comment 1.0, Activated Partial Thromboplast Time 36H, Blood Gas Puncture Site LT RAD, Blood Gas Patient Temperature 99.1, Arterial Blood pH 7.25*L, Arterial Blood Partial Pressure CO2 52H, Arterial Blood Partial Pressure O2 81, Arterial Blood HCO3 22L , Arterial Blood Total CO2 23.7, Arterial Blood Oxygen Saturation 96, Arterial Blood Base Excess -3.9L, Satish Test YES-POS, Blood Gas Ventilator Setting YES, Blood Gas Inspired Oxygen 50%, Sodium Level 140, Potassium Level 4.0, Chloride Level 109H, Carbon Dioxide Level 19L, Anion Gap 12, Blood Urea Nitrogen 33H, Creatinine 1.72H, Estimat Glomerular Filtration Rate 40, BUN/Creatinine Ratio 19 , Glucose Level 213H, Lactic Acid Level 3.70*H, Calcium Level 7.1L, Phosphorus Level 3.2, Magnesium Level 2.1, Total Bilirubin 0.4, Aspartate Amino Transf (AST /SGOT) 366H, Alanine Aminotransferase (ALT/SGPT) 146H, Alkaline Phosphatase 50, Total Protein 4.7L, Albumin 2.4L 05/16/17 08:00: Vancomycin Level Trough 7.7L 05/16/17 11:43: Glucometer 215H 05/16/17 12:00: Lactic Acid Level 3.50*H Microbiology 05/13/17 Blood Culture - Preliminary, Resulted No growth 05/14/17 Gram Stain - Final, Resulted 05/14/17 Sputum Culture - Preliminary, Resulted Fungus Gram Negative Naresh 05/13/17 Urine Culture - Final, Complete NO GROWTH A/P: Assessment: Acute resp failure UTI with septic shock, being managed by the Med Svce Leukopenia and thrombocytopenia, possibly due to shock, being managed by the Med Svce Urinary retention, treated with Gaitan cath Probable COPD Atrial fib vs baseline artifact at presentation. Currently NSR. Not suitable for anticoag due to significant thrombocytopenia Chronic bilateral ankle swelling likely due to venous insufficiency Metabolic acidosis - management per Dr. Quarles Thrombocytopenia and leukopenia of undetermined etiology - management per medical services Liver enzyme elevation of undetermined etiology - possible hepatitis - management per medical services Plan: * Complex management * Resp status has worsened. Now on mech vent * White count improved, but still thrombocytopenic. This is being managed by the Med Sve * Monitor labs СЕРГЕЙ BLACKWELL MD FACP FACC CCDS May 16, 2017 14:26
[2017-05-16] MEDS ORDERED: LACTATED RINGERS 1,000 ML IV ONE (14:30)
--- NOTE | 2017-05-16 15:18 | Progress Note-Hospitalist ---
Subjective HPI/CC On Admission Date Seen by Provider: May 16, 2017 Time Seen by Provider: 07:45 CC: Sepsis with hypotension likely urinary source HPI: This is a 71-year-old white male whose provider is Dr. Falk in [place] that was sent to [facility] ER due to hypotension. He was assessed to have sepsis likely of urinary source due to recent prostatitis managed on Cipro and Flomax but then he became hypotensive given 2 L of IV fluids at [place] [facility] but were unable to place Gaitan catheter due to the significant edema of the prostate. He was given Zosyn empirically for broad-spectrum antibiotics of likely urinary source but patient has to continue to become hypotensive and likely will require intubation due to wheezing after 2 L of fluid have been given. I have conferred with Dr. Quarles and Dr. Ruvalcaba and they will assist me in consultation but likely will require intubation if fails BiPAP. At this current time patient is tracking slowly but answering questions appropriately although slowed response. He reports that he takes methotrexate 10 tablets once a week for his arthritis. He is unable to tell me if he has any heart or lung problems. 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 Subjective/Events-last exam Patient sedated on ventilator. Attempts to decrease to 40 percent FiO2 were successful for an hour and the patient became agitated requiring increased up her van as he was fighting the ventilator. O2 was increased back to 50 percent due to a drop in oxygen saturation in the mid 80s now. Within several minutes patient was breathing easier with resolution of hypoxemia. During this time there did not appear to be overt evidence for mucus plugging with filmy a scant amount of clear mucus being suctioned from the vent. Objective Exam Vital Signs Vital Sign - Last 12Hours 05/13/17 05/13/17 05/15/17 16:20 16:30 00:04 Pulse 101 Resp 29 B/P (MAP) 92/63 Pulse Ox 91 O2 Delivery Nasal Cannula O2 Flow Rate 4.00 FiO2 50 Capillary Refill : General Appearance: Chronically ill, Moderate Distress Respiratory: Other (Breath sounds in both bases with rales the midlung hodges. No significant wheezing noted. No rhonchi appreciated.) Cardiovascular: Regular Rate, Rhythm, No Gallop, No JVD, No Murmur, Tachycardia (Sinus) Gastrointestinal: Other (No reaction to palpation the abdomen is soft no mass or organomegaly is noted. Bowel sounds are present no distention noted.) Extremity: Other (Or purpura with 1-2+ edema of the lower extremities bilateral. Extremities are warm at the time of my evaluation.) Skin: Pallor Results/Procedures Lab Assessment/Plan Assessment and Plan Assess & Plan/Chief Complaint 1. Sepsis with hypotension and multiorgan failure including moderate thrombocytopenia and respiratory acidosis. Patient is critically ill with the only lab improvement from yesterday being resolution of neutropenia. Prognosis remains quite guarded. Mean arterial pressure staying above 65 with systolic pressures past majority greater than 100 off pressor support. Continue mechanical ventilation and continue FiO2 at 50 percent with likely attempts to wean tomorrow considering today's failure. 2. Neutropenia likely do to methotrexate usage in addition to overwhelming sepsis. This is significantly improved today. 3. Multiorgan failure with evidence for renal and hepatic dysfunction relatively stable compared to yesterday due to sepsis. Patient currently is maintaining reasonable urine output continue to monitor with daily lab evaluation and close monitoring of output. Complex medical management in an individual with critical medical illness. WARREN GARAY MD May 16, 2017 15:18
[2017-05-16] MEDS: ALFUZOSIN HCL 10 MG TAB (UROXATRAL) PO SCH (18:03)
[2017-05-16] MEDS ORDERED: NS (IVPB) 250 ML ONE (18:58)
[2017-05-16] MEDS ORDERED: NS (IVPB) 250 ML IV ONE (19:15)
[2017-05-16] MEDS: MONTELUKAST 10 MG (SINGULAIR) TAB PO SCH (21:00)
[2017-05-17] VITALS (22 sets, daily range): BP systolic 90–135; BP diastolic 52–87
[2017-05-17] MEDS: PIPERACILLIN/TAZOBACTAM 4.5 GM/NS 100 ML IVPB IV SCH ×4 (00:19→08:30)
[2017-05-17] MEDS: inSUlin (REGULAR) HUMAN 1 UNIT/0.01 ML (CHARGE PER UNIT) SC SCH ×2 (00:24→06:30)
[2017-05-17 01:21] LABS: EOSINOPHILS # (AUTO) 0.1 10^3/uL (0.0-0.3); EOSINOPHILS % (AUTO) 1 % (0-10); LYMPHOCYTES # (AUTO) 2.3 X 10^3 (1.0-4.0); LYMPHOCYTES % (AUTO) 16 % (12-44); MEAN CORPUSCULAR HEMOGLOBIN 32 PG (25-34); MEAN CORPUSCULAR HGB CONC 33 G/DL (32-36); MEAN CORPUSCULAR VOLUME 98 FL (80-99); MEAN PLATELET VOLUME 9.3 FL (7.4-10.4); MONOCYTES # (AUTO) 0.3 X 10^3 (0.0-1.0); MONOCYTES % (AUTO) 2 % (0-12); PLATELET COUNT 40 10^3/uL (130-400); RED BLOOD COUNT 3.77 10^6/uL (4.35-5.85); RED CELL DISTRIBUTION WIDTH 16.5 % (10.0-14.5); WHITE BLOOD COUNT 13.9 10^3/uL (4.3-11.0)
[2017-05-17 01:22] LABS: BASOPHILS # (AUTO) 0.6 10^3/uL (0.0-0.1); BASOPHILS % (AUTO) 4 % (0-10); NEUTROPHILS # (AUTO) 10.7 X 10^3 (1.8-7.8); NEUTROPHILS % (AUTO) 77 % (42-75)
[2017-05-17 01:23] LABS: BILIRUBIN,URINE NEGATIVE (NEGATIVE); KETONES,URINE NEGATIVE (NEGATIVE); LEUKOCYTE ESTERASE ,URINE 1+ (NEGATIVE); NITRITE,URINE NEGATIVE (NEGATIVE); PH,URINE 5 (5-9); PROTEIN,URINE 2+ (NEGATIVE); UROBILINOGEN,URINE NORMAL (NORMAL)
[2017-05-17 01:31] LABS: INR 1.1 (0.8-1.4); PROTHROMBIN TIME PATIENT 13.8 SEC (12.2-14.7)
[2017-05-17 01:33] LABS: WBC,URINE RARE /HPF
[2017-05-17] MEDS: NOREPINEPHRINE 4 MG in D5W 250 ML (IVPB) 250 ML IV SCH ×2 (01:40→08:33)
[2017-05-17 01:47] LABS: ALBUMIN 2.4 GM/DL (3.2-4.5); BILIRUBIN,TOTAL 0.6 MG/DL (0.1-1.0); CALCIUM 7.6 MG/DL (8.5-10.1); MAGNESIUM 2.3 MG/DL (1.8-2.4); PHOSPHORUS 5.5 MG/DL (2.3-4.7); POTASSIUM 3.9 MMOL/L (3.6-5.0); TOTAL PROTEIN 4.9 GM/DL (6.4-8.2)
[2017-05-17 02:06] LABS: CREATININE SERUM 3.52 MG/DL (0.60-1.30)
[2017-05-17] MEDS ORDERED: FUROSEMIDE 40 MG/4 ML INJ (LASIX) IVP ONE ×2 (02:15→05:00)
[2017-05-17] MEDS: RT-ALBUTEROL/IPRATROPIUM 3 ML (DUONEB) VIAL INH SCH ×4 (02:56→13:54)
[2017-05-17] MEDS: methylPREDNISolone 40 MG/ML (Solu-MEDROL) VIAL IV SCH ×2 (03:24→08:34)
[2017-05-17] MEDS: PROPOFOL DRIP (ICU) 100 ML IV SCH ×3 (04:07→14:02)
[2017-05-17] MEDS: LACTATED RINGERS 1,000 ML IV SCH (04:10)
[2017-05-17] MEDS: inSUlin ASPART (NovoLOG) 1 UNIT/0.01 ML (CHARGE PER UNIT) SC SCH ×3 (04:11→14:06)
[2017-05-17 04:50] LABS: ABG BASE EXCESS -7.5 MMOL/L (-2.5-2.5); ABG HCO3 19 MMOL/L (23-27); ABG OXYGEN SATURATION 89 % (94-100); ABG PCO2 51 MMHG (35-45); ABG PO2 59 MMHG (79-93); ABG TCO2 20.8 MMOL/L (21.0-31.0)
[2017-05-17 04:53] LABS: ALLENS TEST POSITIVE; PATIENT TEMP 98.1
[2017-05-17] MEDS: KCL 20 MEQ TAB (K-DUR) PO SCH (06:00)
[2017-05-17] MEDS: POTASSIUM CL 10MEQ/50ML IVPB 50 ML IV SCH (06:00)
[2017-05-17] MEDS: MAGNESIUM 1 GM/100 ML IVPB 100 ML IV SCH (06:00)
[2017-05-17] MEDS: VANCOMYCIN 1500 MG/NS 500 ML IVPB IV SCH ×2 (08:07)
[2017-05-17] MEDS: LEVOFLOXACIN 750 MG/150 ML IV 150 ML IV SCH (08:29)
[2017-05-17] MEDS: SODIUM BICARBONATE IV SCH ×2 (08:30→12:28)
[2017-05-17] MEDS: FAMOTIDINE 20MG/2ML IV (PEPCID) IV SCH (08:34)
[2017-05-17] MEDS: FLUCONAZOLE 100 MG/50 ML 50 ML IV SCH (08:34)
[2017-05-17] MEDS: LORATADINE (CLARITIN) 10 MG TAB PO SCH (09:01)
--- NOTE | 2017-05-17 10:31 | Diagnostic Imaging Report ---
INDICATION: Sepsis. Frontal chest obtained at 5:24 a.m. and compared with yesterday. FINDINGS: ET tube and NG tube are unchanged. The heart is borderline in size. Left lung remains grossly clear. There is new or worsening infiltrate in the right base compared to the prior study. There is no significant pleural fluid or pneumothorax IMPRESSION: Borderline heart size. Unchanged life-support lines. New or worsening infiltrate in the right lung base compared to the previous study. Continued followup is recommended. Dictated by: Dictated on workstation # [id number]
--- NOTE | 2017-05-17 12:58 | Progress Note-Cardiology ---
Cardiology SOAP Progress Note Subjective: Intubated and on mech vent Objective: I&O/Vital Signs Vital Sign - Last 12Hours 05/17/17 05/17/17 05/17/17 05/17/17 01:00 01:00 02:00 02:57 Pulse 121 128 128 117 Resp 24 26 26 B/P (MAP) 100/60 104/61 Pulse Ox 95 95 95 O2 Delivery Mechanical Ventilator Mechanical Ventilator O2 Flow Rate 45.00 45.00 FiO2 45 05/17/17 05/17/17 05/17/17 05/17/17 03:00 04:00 04:00 04:00 Temp 98.1 Pulse 118 124 Resp 30 27 B/P (MAP) 102/64 115/65 Pulse Ox 93 94 O2 Delivery Mechanical Ventilator Mechanical Ventilator Mechanical Ventilator O2 Flow Rate 45.00 45.00 FiO2 45 05/17/17 05/17/17 05/17/17 05/17/17 04:07 04:10 05:00 05:27 Pulse 124 128 121 Resp 33 27 27 B/P (MAP) 115/65 102/64 Pulse Ox 94 94 94 O2 Delivery Mechanical Ventilator Mechanical Ventilator Mechanical Ventilator O2 Flow Rate 45.00 45.00 50.00 FiO2 45 05/17/17 05/17/17 05/17/17 05/17/17 06:00 06:21 07:00 08:00 Temp 96.2 Pulse 118 115 128 Resp 27 27 B/P (MAP) 94/58 Pulse Ox 96 95 O2 Delivery Mechanical Ventilator O2 Flow Rate 50.00 FiO2 50 05/17/17 05/17/17 05/17/17 05/17/17 08:00 08:48 09:16 10:00 Pulse 122 121 Resp 27 27 B/P (MAP) 100/67 Pulse Ox 96 96 O2 Delivery Mechanical Ventilator FiO2 50 50 50 Intake and Output 05/18/17 00:00 Intake Total 200 ml Balance 200 ml Weight (Pounds): 312 Weight (Ounces): 8.0 Weight (Calculated Kilograms): 141.293422 Constitutional: well-developed, well-nourished, other (on mech vent) Respiratory: No accessory muscle use, other (fair air entry; prolonged exp; exp wheezes) Cardiovascular: tachycardia, S1 and S2, systolic murmur (faint DIAZ at cardiac base) Gastrointestional: No tender, soft, No guarding, No rebound, audible bowel sounds Extremities: No clubbing, No cyanosis, significant edema (2+ ankle edema) Neurologic/Psychiatric: grossly intact, power is 5/5 both on sides Skin: No rash on exposed areas, No ulcerations on exposed areas Results/Procedures: Labs Laboratory Tests 05/16/17 18:18: Glucometer 189H 05/17/17 00:16: Glucometer 212H 05/17/17 01:00: White Blood Count 13.9H, Red Blood Count 3.77L, Hemoglobin 12.1L, Hematocrit 37L , Mean Corpuscular Volume 98, Mean Corpuscular Hemoglobin 32, Mean Corpuscular Hemoglobin Concent 33, Red Cell Distribution Width 16.5H, Platelet Count 40L, Mean Platelet Volume 9.3, Neutrophils (%) (Auto) 77H, Lymphocytes (%) (Auto) 16 , Monocytes (%) (Auto) 2, Eosinophils (%) (Auto) 1, Basophils (%) (Auto) 4, Neutrophils # (Auto) 10.7H, Lymphocytes # (Auto) 2.3, Monocytes # (Auto) 0.3, Eosinophils # (Auto) 0.1, Basophils # (Auto) 0.6H, Prothrombin Time 13.8, INR Comment 1.1, Activated Partial Thromboplast Time 40H, Urine Color YELLOW, Urine Clarity CLEAR, Urine pH 5, Urine Specific [place] 1.015L, Urine Protein 2+H, Urine Glucose (UA) 1+H, Urine Ketones NEGATIVE, Urine Nitrite NEGATIVE, Urine Bilirubin NEGATIVE, Urine Urobilinogen NORMAL, Urine Leukocyte Esterase 1+H, Urine RBC (Auto) 5+H, Urine RBC 5-10H, Urine WBC RARE, Urine Crystals PRESENTH, Urine Amorphous Sediment LARGE LEWIS URATESH, Urine Bacteria NEGATIVE, Urine Casts NONE, Urine Mucus NEGATIVE, Urine Culture Indicated NO, Urine Random Creatinine 52, Urine Random Sodium 112, Sodium Level 140, Potassium Level 3.9, Chloride Level 108H, Carbon Dioxide Level 17L, Anion Gap 15H, Blood Urea Nitrogen 48H, Creatinine 3.52#H, Estimat Glomerular Filtration Rate 17, BUN/ Creatinine Ratio 14, Glucose Level 236H, Lactic Acid Level 3.63*H, Calcium Level 7.6L, Phosphorus Level 5.5H, Magnesium Level 2.3, Total Bilirubin 0.6, Aspartate Amino Transf (AST/SGOT) 397H, Alanine Aminotransferase (ALT/SGPT) 152H , Alkaline Phosphatase 67, Total Protein 4.9L, Albumin 2.4L 05/17/17 04:06: Glucometer 241H 05/17/17 04:45: Blood Gas Puncture Site LEFT RADIAL, Blood Gas Patient Temperature 98.1, Arterial Blood pH 7.20*L, Arterial Blood Partial Pressure CO2 51H, Arterial Blood Partial Pressure O2 59L, Arterial Blood HCO3 19L, Arterial Blood Total CO2 20.8L, Arterial Blood Oxygen Saturation 89L, Arterial Blood Base Excess - 7.5L, Satish Test POSITIVE, Blood Gas Ventilator Setting YES, Blood Gas Inspired Oxygen 45% 05/17/17 08:39: Glucometer 246H Microbiology 05/15/17 Blood Culture - Preliminary, Resulted No growth 05/14/17 Gram Stain - Final, Resulted 05/14/17 Sputum Culture - Preliminary, Resulted Fungus Pseudomonas Aeruginosa Presumptive Margaret Albicans 05/13/17 Urine Culture - Final, Complete NO GROWTH Laboratory Tests 05/16/17 03:30 05/17/17 01:00 A/P: Assessment: Acute resp failure UTI with septic shock, being managed by the Med S[facility] Acute renal failure Leukopenia and thrombocytopenia, possibly due to shock, being managed by the Med S[facility]. Leukopenia resolved; thrombocytopenia persistent Urinary retention, treated with Gaitan cath Echo of 05/17/17: LVEF 60-65%, no significant valvular heart disease; RVSP WNL Probable COPD Atrial fib vs baseline artifact at presentation. Currently NSR. Not suitable for anticoag due to significant thrombocytopenia Chronic bilateral ankle swelling likely due to venous insufficiency Metabolic acidosis - Medical [facility] managing Liver enzyme elevation of undetermined etiology - possible hepatitis - management per medical services Plan: * Complex management * Resp status has worsened. [facility] * White count improved, but still thrombocytopenic. This is being managed by the Med S[facility] * Monitor labs СЕРГЕЙ BLACKWELL MD FACP FAC CCDS May 17, 2017 12:58
--- NOTE | 2017-05-17 13:32 | Discharge Summary-Hospitalist ---
Diagnosis/Chief Complaint Date of Admission May 13, 2017 at 16:21 Date of Discharge Admission Diagnosis Assessment: Sepsis with hypotension status post 2 L of fluid given will need another 2 L due to continued hypotension and likely intubation will be required if fails BiPAP Subtle confusion and slow tracking consistent with sepsis and delirium Acute prostatitis with likely acute UTI and pyelonephritis Severe urinary retention status post urology placement of catheter high risk for gross hematuria and electrolyte imbalance post obstructive diuresis History of arthritis on methotrexate immunosuppression 10 tablets once a week Discharge Diagnosis 1. Sepsis from likely urinary tract origin with hypotension and multiorgan failure. 2. Neutropenia likely do to methotrexate usage in addition to overwhelming sepsis resolved. 3. Multiorgan failure with evidence for worsening acute renal failure likely acute tubular necrosis with oliguria. 4. History of rheumatoid arthritis the reason for methotrexate usage. 5. Past history of urethral stricture with requirement of suprapubic catheterization in the distant past. 6. Reported history of unsuccessful traumatic self-catheterization with an unclean catheter. 7. Thrombocytopenia secondary to number 1 Discharge Summary Discharge Physical Examination Allergies: Coded Allergies: No Known Drug Allergies (Unverified , 05/13/17) Vitals & I&Os Vital Signs Date Time Temp Pulse Resp B/P (MAP) Pulse Ox O2 Delivery O2 Flow Rate FiO2 05/17/17 10:00 121 27 96 50 05/17/17 09:16 100/67 05/17/17 08:00 Mechanical Ventilator 05/17/17 08:00 96.2 05/17/17 06:00 50.00 Hospital Course history of the present illness: The daughter reports Mr. Medellin was doing well until around when he noted increased urinary frequency with decreased volume. By Thursday she was pleading for him to seek medical attention. He reportedly refused. At some point he attempted self catheterization with an old urinary catheter he had had from previous obstruction problems due to apparent urethral stricture. This was serious enough in the past that required suprapubic tube placement. He underwent stricture release sometime in 2014 and had been able to void on his own since. His condition worsened over the weekend. His daughter did start several Bactrim DS tablets at she had on Thursday. He did consent to seeking out medical care on Thursday at which point he was reportedly started on Cipro. Blood tests were obtained at that time that revealed significant neutropenia but she did not know what absolute level was. Over the next 48 hours he became more confused and weak. She was able to get him to consent to return to the emergency room where he was noted to be hypotensive. IV fluid resuscitation and I believe short-term leave the [facility] [place]Note 2] were initiated and he was transferred to our facility. Hospital course: On arrival to emergency room he was hypoxic and mildly hypotensive with extra fluid blood pressure came up. BiPAP was initiated but unsuccessful necessitating mechanical ventilation. Low-dose levo fed was discontinued after short period of time with maintenance of mean arterial pressures greater than 65 off of pressor support. He was initially be neutropenic with a total white count of around 1000 and thrombocytopenic with initial platelet count of 60,000 with only mild normocytic anemia. Repeat urine cultures were negative. A culture on the from his ET tube did grow out some yeast as well as a small amount of Pseudomonas that was pansensitive. On admission to our facility vancomycin and Zosyn and Levaquin were initiated. These antibiotics were continued and tell yesterday's last dose due to the onset of oliguria over the past 18 hours with creatinine levels going from the mid 1 range to 3.5 from yesterday to today. the family states that if there was any hope Mr. Meedllin would want everything done to afford his best chance for survival. After discussion they were amenable to transfer to as it is likely he will need CRRT. They are aware of the critical nature of his illness. the weather here and from what I am told in the [place] area is heavily overcast with heavy rain. For this reason it is going to be safest to transport the patient via ambulance. Currently the patient's vital signs are little changed with blood pressure in the 100-110 systolic range with mean arterial pressures in the 70-90 range and sinus tachycardia heart rate currently 120 and stable. O2 saturation is 96 percent on 50 percent O2 via mechanical ventilation with 5 of PEEP. ABG this a.m. did reveal persistent mixed metabolic and respiratory acidosis with a pH 7.2 and a bicarbonate level of 17 and as I recall with scant initiation of sodium bicarbonate drip. [facility] was contacted and agreed to accept Mr. Medellin via ground transportation. Labs (last 24 hrs) Laboratory Tests 05/16/17 18:18: Glucometer 189H 05/17/17 00:16: Glucometer 212H 05/17/17 01:00: White Blood Count 13.9H, Red Blood Count 3.77L, Hemoglobin 12.1L, Hematocrit 37L , Mean Corpuscular Volume 98, Mean Corpuscular Hemoglobin 32, Mean Corpuscular Hemoglobin Concent 33, Red Cell Distribution Width 16.5H, Platelet Count 40L, Mean Platelet Volume 9.3, Neutrophils (%) (Auto) 77H, Lymphocytes (%) (Auto) 16 , Monocytes (%) (Auto) 2, Eosinophils (%) (Auto) 1, Basophils (%) (Auto) 4, Neutrophils # (Auto) 10.7H, Lymphocytes # (Auto) 2.3, Monocytes # (Auto) 0.3, Eosinophils # (Auto) 0.1, Basophils # (Auto) 0.6H, Prothrombin Time 13.8, INR Comment 1.1, Activated Partial Thromboplast Time 40H, Urine Color YELLOW, Urine Clarity CLEAR, Urine pH 5, Urine Specific [place] 1.015L, Urine Protein 2+H, Urine Glucose (UA) 1+H, Urine Ketones NEGATIVE, Urine Nitrite NEGATIVE, Urine Bilirubin NEGATIVE, Urine Urobilinogen NORMAL, Urine Leukocyte Esterase 1+H, Urine RBC (Auto) 5+H, Urine RBC 5-10H, Urine WBC RARE, Urine Crystals PRESENTH, Urine Amorphous Sediment LARGE LEWIS URATESH, Urine Bacteria NEGATIVE, Urine Casts NONE, Urine Mucus NEGATIVE, Urine Culture Indicated NO, Urine Random Creatinine 52, Urine Random Sodium 112, Sodium Level 140, Potassium Level 3.9, Chloride Level 108H, Carbon Dioxide Level 17L, Anion Gap 15H, Blood Urea Nitrogen 48H, Creatinine 3.52#H, Estimat Glomerular Filtration Rate 17, BUN/ Creatinine Ratio 14, Glucose Level 236H, Lactic Acid Level 3.63*H, Calcium Level 7.6L, Phosphorus Level 5.5H, Magnesium Level 2.3, Total Bilirubin 0.6, Aspartate Amino Transf (AST/SGOT) 397H, Alanine Aminotransferase (ALT/SGPT) 152H , Alkaline Phosphatase 67, Total Protein 4.9L, Albumin 2.4L 05/17/17 04:06: Glucometer 241H 05/17/17 04:45: Blood Gas Puncture Site LEFT RADIAL, Blood Gas Patient Temperature 98.1, Arterial Blood pH 7.20*L, Arterial Blood Partial Pressure CO2 51H, Arterial Blood Partial Pressure O2 59L, Arterial Blood HCO3 19L, Arterial Blood Total CO2 20.8L, Arterial Blood Oxygen Saturation 89L, Arterial Blood Base Excess - 7.5L, Satish Test POSITIVE, Blood Gas Ventilator Setting YES, Blood Gas Inspired Oxygen 45% 05/17/17 08:39: Glucometer 246H Microbiology 05/15/17 Blood Culture - Preliminary, Resulted No growth 05/14/17 Gram Stain - Final, Resulted 05/14/17 Sputum Culture - Preliminary, Resulted Fungus Pseudomonas Aeruginosa Presumptive Margaret Albicans 05/13/17 Urine Culture - Final, Complete NO GROWTH Pending Labs Laboratory Tests 05/17/17 08:39: Glucometer 246 Discharge Home Medications: Active Scripts Active Reported Potassium Chloride 20 Meq Tab.er.prt 20 Meq PO DAILY Methotrexate (Methotrexate Sodium) 2.5 Mg Tablet 10 Mg PO CAN TAKES 4 (2.5 MG) TABLETS Folic Acid 1 Mg Tablet 1 Mg PO DAILY Ventolin Hfa (Albuterol Sulfate) 18 Gm Hfa.aer.ad 2 Puff IH Q6H PRN Ciprofloxacin HCl 500 Mg Tablet 500 Mg PO BID FILLED 05/11/17 #28 FOR A 14 DAY THERAPY / HAS NOT STARTED Furosemide 40 Mg Tablet 40 Mg PO DAILY Tamsulosin HCl 0.4 Mg Cap.er.24h 0.4 Mg PO DAILY Instructions to patient/family Please see electronic discharge instructions given to patient. Clinical Quality Measures DVT/VTE Risk/Contraindication: Risk Factor Score Per Nursin RFS Level Per Nursing on Admit: 4+=Very High WARREN GARAY MD May 17, 2017 13:32
[2017-05-17] MEDS: TBO-FILGRASTIM 480 MCG/0.8 ML (GRANIX) SQ SCH (14:07)
[2017-05-17] MEDS ORDERED: TROUGH ORDER-PHARMACY XX NR (19:00)
[2017-05-17] MEDS ORDERED: VANCOMYCIN 1500 MG/NS 500 ML IVPB IV SCH ×2 (20:00)
[2017-05-18] MEDS ORDERED: FAMOTIDINE 20MG/2ML IV (PEPCID) IV SCH (09:00)
[2017-05-18] MEDS ORDERED: LEVOFLOXACIN 750 MG/150 ML IV 150 ML IV SCH (09:00)
== END 2017-05-17 15:00 | disposition short-term general hospital (02) | DRG 871 ==
LOC: ICU 16:21
PROVIDERS: ADMIT Internal Medicine; ATTEND Internal Medicine
PROC: 02HV33Z Insertion of Infusion Device into Superior Vena Cava, Percutaneous Approach (ICD-10-PCS; principal; 2017-05-13)
PROC: 5A1945Z Respiratory Ventilation, 24-96 Consecutive Hours (ICD-10-PCS; 2017-05-15)
DX: A41.9 Sepsis, unspecified organism (principal); R65.20 Severe sepsis without septic shock; J96.00 Acute respiratory failure, unspecified whether with hypoxia or hypercapnia; N17.0 Acute kidney failure with tubular necrosis; N41.0 Acute prostatitis; N39.0 Urinary tract infection, site not specified; J44.1 Chronic obstructive pulmonary disease with (acute) exacerbation; J98.11 Atelectasis; E66.01 Morbid (severe) obesity due to excess calories; Z68.41 Body mass index [BMI] 40.0-44.9, adult; D84.9 Immunodeficiency, unspecified; E87.2 Acidosis; D70.2 Other drug-induced agranulocytosis; T45.1X5A Adverse effect of antineoplastic and immunosuppressive drugs, initial encounter; N40.1 Benign prostatic hyperplasia with lower urinary tract symptoms; R33.8 Other retention of urine; D69.6 Thrombocytopenia, unspecified; I48.91 Unspecified atrial fibrillation; I87.2 Venous insufficiency (chronic) (peripheral); M15.0 Primary generalized (osteo)arthritis; K75.81 Nonalcoholic steatohepatitis (NASH); G47.33 Obstructive sleep apnea (adult) (pediatric); R74.8 Abnormal levels of other serum enzymes; M06.9 Rheumatoid arthritis, unspecified; R41.0 Disorientation, unspecified; Z87.891 Personal history of nicotine dependence
CPT/HCPCS: 36415; 71010; 76700; 80053; 80202; 81000; 82570; 82805; 82962; 83605; 83735; 83880; 84100; 84300; 84540; 85007; 85025; 85027; 85610; 85730; 86022; 87040; 87070; 87077; 87088; 87186; 87205; 93005; 93306; 93970; 94002; 94003; 94640; 94660; 94664; 94799